=== PATIENT | female | born 1940 | race Caucasian/White ===

== ENCOUNTER 2020-04-20 03:01 | Inpatient (IN) ==
[2020-04-20] MEDS ORDERED: Naloxone 0.4 MG/ML INJ IVP PRN (05:43)
[2020-04-20] MEDS ORDERED: Perflutren Lipid Microsphere 1.3 ML in 0.9 % Sodium Chloride 8.7 ML IVP PRN ×2 (05:46→12:30)
[2020-04-20] MEDS ORDERED: Acetaminophen 325 MG TABLET PO PRN (06:00)
[2020-04-20] MEDS ORDERED: *HR* Promethazine 25 MG/ML VIAL IVP PRN (06:00)
[2020-04-20 06:08] LABS: Bilirubin,Urine Negative (Negative); Blood,Urine Negative (Negative); Clarity,Urine Clear (Clear); Color,Urine Colorless (Yellow); Glucose,Urine (UA) Normal (Normal); Ketones,Urine Negative (Negative); Leukocyte Esterase,Urine Negative (Negative); Nitrite,Urine Negative (Negative); PH,Urine 7.5 pH Units (5.0-8.0); Protein,Urine Negative (Neg-Trace); Urobilinogen,Urine Normal (Normal)
[2020-04-20 06:30] LABS: Basophils % 0.1 %; Mean Platelet Volume 9.7 fL (9.4-12.4)
[2020-04-20] MEDS ORDERED: Isovue-370 500 ML BOTTLE IVP ONE (06:30)
[2020-04-20 06:32] LABS: Eosinophils # 0.1 K/mcL (0.0-0.6); Eosinophils % 0.8 %; Hematocrit 34.3 % (35.3-44.9); Hemoglobin 9.7 g/dL (11.5-15.4); Immature Granulocytes % 0.4 % (0-4); Lymphocytes % 6.8 %; Mean Corpuscular HGB Conc 28.3 g/dL (31.6-35.5); Mean Corpuscular Hemoglobin 25.1 pg (28.0-33.3); Mean Corpuscular Volume 88.6 fL (83.0-100.0); Monocytes # 0.8 K/mcL (0.0-1.3); Monocytes % 5.6 %; Neutrophils # 12.6 K/mcL (1.6-8.9); Nucleated Red Blood Cells 0.1 /100 WBC (0); Platelet Count 412 K/mcL (140-400); Red Blood Count 3.87 M/mcL (3.82-4.97); Red Cell Distribution Width 22.4 % (11.5-14.5); Segmented Neutrophils % 86.3 %; White Blood Count 14.6 K/mcL (4.3-11.1)
[2020-04-20 06:41] LABS: INR 1.1; Prothrombin Time 12.7 Seconds (9.4-12.1)
[2020-04-20 06:44] LABS: Adenovirus Not Detected (Not Detect); Bordetella Pertussis Not Detected (Not Detect); Chlamydophila pneumoniae Not Detected (Not Detect); Coronavirus 229E Not Detected (Not Detect); Coronavirus HKU1 Not Detected (Not Detect); Coronavirus NL63 Not Detected (Not Detect); Coronavirus OC43 Not Detected (Not Detect); Human Metapneumovirus Not Detected (Not Detect); Human Rhinovirus/Enterovirus DETECTED (Not Detect); Influenza A Subtype 2009 H1 Not Detected (Not Detect); Influenza B Not Detected (Not Detect); Mycoplasma pneumoniae Not Detected (Not Detect); Parainfluenza Virus 1 Not Detected (Not Detect); Parainfluenza Virus 2 Not Detected (Not Detect); Parainfluenza Virus 3 Not Detected (Not Detect); Parainfluenza Virus 4 Not Detected (Not Detect); Respiratory Syncytial Virus Not Detected (Not Detect)
[2020-04-20 06:58] LABS: Anisocytosis 1+ (Not Present); Hypochromasia Present (Not Present); Platelet Estimate Normal (Normal)
[2020-04-20] MEDS ORDERED: Furosemide 40 MG/4 ML VIAL IVP ONE (07:09)
[2020-04-20 07:17] LABS: Alanine Aminotransferase 22 Units/L (7-52); Albumin 3.3 g/dL (3.5-5.7); Albumin/Globulin Ratio 1.1 (1.1-2.2); Alkaline Phosphatase 81 Units/L (34-104); Aspartate Amino Transferase 19 Units/L (13-39); BUN/Creatinine Ratio 26 (6-26); Bilirubin,Total 0.6 mg/dL (0.3-1.0); Blood Urea Nitrogen 27 mg/dL (8-23); Calcium 8.9 mg/dL (8.6-10.3); Carbon Dioxide 44 mEq/L (23-29); Chloride 91 mEq/L (98-107); Chol/HDL Ratio 2.3 (0-4.9); Cholesterol 97 mg/dL (< 200); Ferritin 35 ng/mL (10-120); Globulin 3.1 g/dL (2.4-3.5); Glucose 116 mg/dL (70-105); HDL Cholesterol 43 mg/dL (40-59); LDL Cholesterol,Calculated 42 mg/dL (< 100); Magnesium 2.3 mg/dL (1.6-2.6); Osmolality,Calculated 290 (280-300); Phosphorous 3.6 mg/dL (2.7-4.5); Potassium 3.9 mEq/L (3.5-5.1); Sodium 137 mEq/L (136-145); Total Protein 6.4 g/dL (6.4-8.9); Triglycerides 61 mg/dL (< 150); eGFR For African Americans > 60 (> 60); eGFR For Non-African Americans 51 (> 60)
[2020-04-20 07:19] LABS: Folate 7.7 ng/mL (3.0-16.0)
[2020-04-20 08:12] LABS: ABG Base Excess 16 mEq/L (-2 to 3); ABG HCO3 46 mEq/L (21-27); ABG Oxygen Saturation 94 % (95-98); ABG PCO2 84 mmHg (35-45); ABG PH 7.35 pH Units (7.32-7.45); ABG PO2 79 mmHg (85-104); ABG TCO2 48 mEq/L (20-26); Blood Gas Pressure Support 16 cm H2O
[2020-04-20] MEDS: Azithromycin 500 MG in 0.9 % Sodium Chloride 250 ML IVPB SCH (08:47)
[2020-04-20] MEDS: Furosemide 40 MG/4 ML VIAL IVP SCH ×2 (08:56→23:01)
[2020-04-20] MEDS: methylPREDNISolone 125 MG/2 ML VIAL IVP SCH ×2 (08:56→16:17)
[2020-04-20] MEDS: *HR* Heparin 5,000 UNIT/ML VIAL SQ SCH ×3 (08:57→21:58)
[2020-04-20] MEDS ORDERED: Haloperidol Lactate 5 MG/ML VIAL IVP ONE (09:01)
[2020-04-20] MEDS ORDERED: *HR* Dextrose 50 % in Water (Vial) 50 ML VIAL IVP ONE (11:15)
[2020-04-20] MEDS: Ipratropium/Albuterol Neb 3 ML IH SCH ×4 (12:01→23:26)
[2020-04-20 12:07] LABS: ABG Base Excess 18 mEq/L (-2 to 3); ABG HCO3 46 mEq/L (21-27); ABG Oxygen Saturation 83 % (95-98); ABG PCO2 78 mmHg (35-45); ABG PH 7.38 pH Units (7.32-7.45); ABG PO2 51 mmHg (85-104); ABG TCO2 49 mEq/L (20-26)
[2020-04-20] MEDS: Aspirin 81 MG TAB.CHEW PO SCH (13:00)
[2020-04-20 13:18] LABS: VBG HCO3 40 mEq/L (21-27); VBG PCO2 49 mmHg (41-51); VBG PH 7.52 pH Units (7.32-7.42); VBG PO2 208 mmHg (25-50)
[2020-04-20] MEDS: Dexmedetomidine HCl 400 MCG/100 ML MLS IVC SCH ×2 (13:52→15:04)
[2020-04-20] MEDS: cefTRIAXone 2,000 MG in Water for inj. (sterile) 20 ML IVP SCH (14:00)
[2020-04-20 18:06] LABS: VBG HCO3 44 mEq/L (21-27); VBG PCO2 81 mmHg (41-51); VBG PH 7.34 pH Units (7.32-7.42); VBG PO2 136 mmHg (25-50)
[2020-04-20 22:10] LABS: ABG Base Excess 20 mEq/L (-2 to 3); ABG HCO3 49 mEq/L (21-27); ABG Oxygen Saturation 88 % (95-98); ABG PCO2 79 mmHg (35-45); ABG PO2 60 mmHg (85-104); ABG TCO2 > 50 mEq/L (20-26); Blood Gas Modality BiLevel; Blood Gas Pressure Support 8 cm H2O
[2020-04-20 22:54] LABS: VBG HCO3 44 mEq/L (21-27); VBG PCO2 73 mmHg (41-51); VBG PH 7.38 pH Units (7.32-7.42); VBG PO2 58 mmHg (25-50)
[2020-04-21] MEDS: methylPREDNISolone 125 MG/2 ML VIAL IVP SCH ×4 (00:47→22:30)
[2020-04-21 03:26] LABS: Immature Granulocytes % 0.3 % (0-4)
[2020-04-21 03:27] LABS: Eosinophils % 0.2 %; Hematocrit 28.4 % (35.3-44.9); Hemoglobin 8.1 g/dL (11.5-15.4); Lymphocytes # 0.3 K/mcL (0.6-4.6); Lymphocytes % 5.7 %; Mean Corpuscular HGB Conc 28.5 g/dL (31.6-35.5); Mean Corpuscular Hemoglobin 24.8 pg (28.0-33.3); Mean Corpuscular Volume 87.1 fL (83.0-100.0); Mean Platelet Volume 9.6 fL (9.4-12.4); Monocytes # 0.1 K/mcL (0.0-1.3); Monocytes % 1.9 %; Neutrophils # 5.3 K/mcL (1.6-8.9); Platelet Count 304 K/mcL (140-400); Red Blood Count 3.26 M/mcL (3.82-4.97); Segmented Neutrophils % 91.9 %; White Blood Count 5.8 K/mcL (4.3-11.1)
[2020-04-21 03:27] LABS: VBG HCO3 43 mEq/L (21-27); VBG PCO2 65 mmHg (41-51); VBG PH 7.43 pH Units (7.32-7.42); VBG PO2 218 mmHg (25-50)
[2020-04-21 03:39] LABS: INR 1.2; Prothrombin Time 13.2 Seconds (9.4-12.1)
[2020-04-21 03:41] LABS: % Iron Saturation 3 % (15-50); Iron 10 mcg/dL (50-170); Transferrin 279 mg/dL (203-362)
[2020-04-21] MEDS: Ipratropium/Albuterol Neb 3 ML IH SCH ×6 (03:43→23:42)
[2020-04-21 03:50] LABS: BUN/Creatinine Ratio 25 (6-26); Blood Urea Nitrogen 21 mg/dL (8-23); Calcium 8.3 mg/dL (8.6-10.3); Carbon Dioxide 43 mEq/L (23-29); Chloride 93 mEq/L (98-107); Glucose 133 mg/dL (70-105); Osmolality,Calculated 293 (280-300); Potassium 4.1 mEq/L (3.5-5.1); Sodium 139 mEq/L (136-145); eGFR For African Americans > 60 (> 60); eGFR For Non-African Americans > 60 (> 60)
[2020-04-21] MEDS: *HR* Heparin 5,000 UNIT/ML VIAL SQ SCH ×3 (04:41→22:06)
[2020-04-21 04:42] LABS: Anisocytosis 1+ (Not Present); Hypochromasia Present (Not Present); Microcytosis Present (Not Present); Platelet Estimate Normal (Normal)
[2020-04-21 06:23] LABS: Magnesium 2.2 mg/dL (1.6-2.6)
[2020-04-21 06:24] LABS: Troponin I 0.03 ng/mL (< 0.04)
[2020-04-21] MEDS: Aspirin 81 MG TAB.CHEW PO SCH (08:57)
[2020-04-21] MEDS: Azithromycin 500 MG in 0.9 % Sodium Chloride 250 ML IVPB SCH (08:58)
[2020-04-21] MEDS ORDERED: Furosemide 40 MG/4 ML VIAL IVP ONE (10:06)
[2020-04-21] MEDS: Iron Sucrose Complex 400 MG in 0.9 % Sodium Chloride 250 ML IVPB SCH (11:27)
[2020-04-21] MEDS: polyethylene glycoL 3350 17 GM POWD.PACK PO SCH ×2 (13:28→22:06)
[2020-04-21] MEDS: cefTRIAXone 2,000 MG in Water for inj. (sterile) 20 ML IVP SCH (13:28)
[2020-04-21] MEDS: *HR* OxyCODONE Immed Rel 5 MG TABLET PO PRN ×3 (13:29→22:09)
[2020-04-21 16:12] LABS: VBG HCO3 41 mEq/L (21-27); VBG PCO2 61 mmHg (41-51); VBG PH 7.44 pH Units (7.32-7.42); VBG PO2 222 mmHg (25-50)
[2020-04-21] MEDS ORDERED: Furosemide 80 MG in 0.9 % Sodium Chloride 50 ML IVPB ONE (18:16)
[2020-04-21] MEDS ORDERED: Furosemide 480 MG in 0.9 % Sodium Chloride 192 ML IVC SCH (20:00)
[2020-04-21 20:14] LABS: VBG HCO3 40 mEq/L (21-27); VBG PCO2 61 mmHg (41-51); VBG PH 7.42 pH Units (7.32-7.42); VBG PO2 209 mmHg (25-50)
[2020-04-21 20:16] LABS: ABG Base Excess 13 mEq/L (-2 to 3); ABG HCO3 40 mEq/L (21-27); ABG Oxygen Saturation 88 % (95-98); ABG PCO2 68 mmHg (35-45); ABG PH 7.38 pH Units (7.32-7.45); ABG PO2 59 mmHg (85-104); ABG TCO2 42 mEq/L (20-26)
[2020-04-21 20:37] LABS: BUN/Creatinine Ratio 26 (6-26); Blood Urea Nitrogen 25 mg/dL (8-23); Calcium 8.9 mg/dL (8.6-10.3); Carbon Dioxide 40 mEq/L (23-29); Chloride 91 mEq/L (98-107); Glucose 135 mg/dL (70-105); Osmolality,Calculated 290 (280-300); Potassium 3.9 mEq/L (3.5-5.1); Sodium 137 mEq/L (136-145); eGFR For African Americans > 60 (> 60); eGFR For Non-African Americans 56 (> 60)
[2020-04-22 00:51] LABS: VBG HCO3 38 mEq/L (21-27); VBG PCO2 35 mmHg (41-51); VBG PH 7.63 pH Units (7.32-7.42); VBG PO2 210 mmHg (25-50)
[2020-04-22 01:22] LABS: BUN/Creatinine Ratio 26 (6-26); Blood Urea Nitrogen 25 mg/dL (8-23); Calcium 8.4 mg/dL (8.6-10.3); Carbon Dioxide 32 mEq/L (23-29); Chloride 92 mEq/L (98-107); Glucose 153 mg/dL (70-105); Osmolality,Calculated 289 (280-300); Potassium 4.4 mEq/L (3.5-5.1); Sodium 136 mEq/L (136-145); eGFR For African Americans > 60 (> 60); eGFR For Non-African Americans 56 (> 60)
[2020-04-22] MEDS: Ipratropium/Albuterol Neb 3 ML IH SCH ×6 (03:31→23:36)
[2020-04-22] MEDS: *HR* Heparin 5,000 UNIT/ML VIAL SQ SCH ×3 (06:15→21:21)
[2020-04-22 08:02] LABS: Hematocrit 34.1 % (35.3-44.9); Hemoglobin 9.5 g/dL (11.5-15.4); Mean Corpuscular HGB Conc 27.9 g/dL (31.6-35.5); Mean Corpuscular Hemoglobin 24.4 pg (28.0-33.3); Mean Corpuscular Volume 87.4 fL (83.0-100.0); Mean Platelet Volume 9.6 fL (9.4-12.4); Platelet Count 364 K/mcL (140-400); Red Cell Distribution Width 22.5 % (11.5-14.5); White Blood Count 13.5 K/mcL (4.3-11.1)
[2020-04-22 08:02] LABS: VBG HCO3 41 mEq/L (21-27); VBG PCO2 69 mmHg (41-51); VBG PH 7.38 pH Units (7.32-7.42); VBG PO2 77 mmHg (25-50)
[2020-04-22 08:04] LABS: INR 1.1; Prothrombin Time 12.2 Seconds (9.4-12.1)
[2020-04-22 08:37] LABS: ABG Base Excess 13 mEq/L (-2 to 3); ABG HCO3 40 mEq/L (21-27); ABG Oxygen Saturation 89 % (95-98); ABG PCO2 60 mmHg (35-45); ABG PH 7.43 pH Units (7.32-7.45); ABG PO2 57 mmHg (85-104); ABG TCO2 42 mEq/L (20-26)
[2020-04-22] MEDS: *HR* OxyCODONE Immed Rel 5 MG TABLET PO PRN ×2 (08:59→21:22)
[2020-04-22] MEDS: polyethylene glycoL 3350 17 GM POWD.PACK PO SCH ×2 (09:01→21:21)
[2020-04-22] MEDS: Aspirin 81 MG TAB.CHEW PO SCH (09:01)
[2020-04-22] MEDS: Azithromycin 500 MG in 0.9 % Sodium Chloride 250 ML IVPB SCH (09:02)
[2020-04-22] MEDS: methylPREDNISolone 125 MG/2 ML VIAL IVP SCH ×3 (09:02→23:23)
[2020-04-22] MEDS: Dexmedetomidine HCl 400 MCG/100 ML MLS IVC SCH (09:06)
[2020-04-22] MEDS: Furosemide 40 MG/4 ML VIAL IVP SCH ×2 (09:07→21:20)
[2020-04-22] MEDS: Iron Sucrose Complex 400 MG in 0.9 % Sodium Chloride 250 ML IVPB SCH (09:14)
[2020-04-22] MEDS: cefTRIAXone 2,000 MG in Water for inj. (sterile) 20 ML IVP SCH (12:25)
[2020-04-22] MEDS: Budesonide/Formoterol 160/4.5 1 PUFF INH IH SCH (19:59)
[2020-04-22 23:07] LABS: VBG HCO3 37 mEq/L (21-27); VBG PCO2 57 mmHg (41-51); VBG PH 7.42 pH Units (7.32-7.42); VBG PO2 210 mmHg (25-50)
[2020-04-22] MEDS: Melatonin 3 MG TABLET PO PRN (23:24)
[2020-04-23] MEDS: Ipratropium/Albuterol Neb 3 ML IH SCH ×5 (03:42→20:29)
[2020-04-23] MEDS: *HR* Heparin 5,000 UNIT/ML VIAL SQ SCH ×3 (06:05→20:14)
[2020-04-23] MEDS: Budesonide/Formoterol 160/4.5 1 PUFF INH IH SCH ×2 (07:31→20:30)
[2020-04-23] MEDS: polyethylene glycoL 3350 17 GM POWD.PACK PO SCH ×2 (08:02→20:15)
[2020-04-23] MEDS: Aspirin 81 MG TAB.CHEW PO SCH (08:02)
[2020-04-23] MEDS: methylPREDNISolone 125 MG/2 ML VIAL IVP SCH (08:03)
[2020-04-23] MEDS: Furosemide 40 MG/4 ML VIAL IVP SCH ×2 (08:03→20:13)
[2020-04-23] MEDS: Azithromycin 500 MG in 0.9 % Sodium Chloride 250 ML IVPB SCH (08:10)
[2020-04-23 09:38] LABS: VBG HCO3 35 mEq/L (21-27); VBG PCO2 51 mmHg (41-51); VBG PH 7.44 pH Units (7.32-7.42); VBG PO2 211 mmHg (25-50)
[2020-04-23 10:01] LABS: Calcium 8.6 mg/dL (8.6-10.3); Potassium 3.4 mEq/L (3.5-5.1)
[2020-04-23] MEDS: Iron Sucrose Complex 400 MG in 0.9 % Sodium Chloride 250 ML IVPB SCH (10:02)
[2020-04-23 10:17] LABS: Hematocrit 32.5 % (35.3-44.9); Hemoglobin 9.3 g/dL (11.5-15.4); Mean Corpuscular HGB Conc 28.6 g/dL (31.6-35.5); Mean Corpuscular Hemoglobin 24.5 pg (28.0-33.3); Mean Corpuscular Volume 85.8 fL (83.0-100.0); Platelet Count 344 K/mcL (140-400); Red Blood Count 3.79 M/mcL (3.82-4.97); Red Cell Distribution Width 22.4 % (11.5-14.5); White Blood Count 13.8 K/mcL (4.3-11.1)
[2020-04-23] MEDS ORDERED: Potassium Chloride Elixir 20 MEQ/15 ML UDC PO ONE (11:35)
[2020-04-23 17:59] LABS: VBG HCO3 32 mEq/L (21-27); VBG PCO2 47 mmHg (41-51); VBG PH 7.43 pH Units (7.32-7.42); VBG PO2 217 mmHg (25-50)
[2020-04-24] MEDS: Ipratropium/Albuterol Neb 3 ML IH SCH ×6 (00:29→20:45)
[2020-04-24 05:18] LABS: VBG HCO3 37 mEq/L (21-27); VBG PCO2 61 mmHg (41-51); VBG PH 7.39 pH Units (7.32-7.42); VBG PO2 84 mmHg (25-50)
[2020-04-24] MEDS: *HR* Heparin 5,000 UNIT/ML VIAL SQ SCH ×3 (05:21→20:16)
[2020-04-24 05:23] LABS: Hematocrit 32.2 % (35.3-44.9); Hemoglobin 9.4 g/dL (11.5-15.4); Mean Corpuscular HGB Conc 29.2 g/dL (31.6-35.5); Mean Corpuscular Hemoglobin 25.1 pg (28.0-33.3); Mean Corpuscular Volume 86.1 fL (83.0-100.0); Mean Platelet Volume 9.9 fL (9.4-12.4); Platelet Count 327 K/mcL (140-400); Red Blood Count 3.74 M/mcL (3.82-4.97); Red Cell Distribution Width 22.7 % (11.5-14.5); White Blood Count 16.4 K/mcL (4.3-11.1)
[2020-04-24 05:39] LABS: Calcium 9.1 mg/dL (8.6-10.3); Potassium 3.4 mEq/L (3.5-5.1)
[2020-04-24] MEDS: Budesonide/Formoterol 160/4.5 1 PUFF INH IH SCH ×2 (07:37→20:45)
[2020-04-24] MEDS: Aspirin 81 MG TAB.CHEW PO SCH (07:50)
[2020-04-24] MEDS: predniSONE 20 MG TABLET PO SCH (07:50)
[2020-04-24] MEDS: Azithromycin 250 MG TABLET PO SCH (07:50)
[2020-04-24] MEDS: Furosemide 40 MG/4 ML VIAL IVP SCH ×2 (07:50→20:16)
[2020-04-24] MEDS ORDERED: Potassium Chloride Elixir 20 MEQ/15 ML UDC PO ONE (11:45)
[2020-04-24] MEDS: polyethylene glycoL 3350 17 GM POWD.PACK PO SCH ×2 (13:43→20:13)
[2020-04-24] MEDS: Melatonin 3 MG TABLET PO PRN (20:14)
[2020-04-24] MEDS: *HR* OxyCODONE Immed Rel 5 MG TABLET PO PRN (20:15)
[2020-04-25] MEDS: Ipratropium/Albuterol Neb 3 ML IH SCH ×7 (00:44→23:40)
[2020-04-25 01:44] LABS: Eosinophils % 0.2 %; Hematocrit 31.8 % (35.3-44.9); Hemoglobin 9.1 g/dL (11.5-15.4); Mean Corpuscular HGB Conc 28.6 g/dL (31.6-35.5); Nucleated Red Blood Cells 0.6 /100 WBC (0)
[2020-04-25 01:44] LABS: VBG HCO3 36 mEq/L (21-27); VBG PCO2 51 mmHg (41-51); VBG PH 7.45 pH Units (7.32-7.42); VBG PO2 98 mmHg (25-50)
[2020-04-25 01:45] LABS: Basophils % 0.2 %; Lymphocytes # 1.5 K/mcL (0.6-4.6); Lymphocytes % 11.3 %; Mean Corpuscular Hemoglobin 24.5 pg (28.0-33.3); Mean Corpuscular Volume 85.5 fL (83.0-100.0); Mean Platelet Volume 9.9 fL (9.4-12.4); Monocytes # 0.8 K/mcL (0.0-1.3); Platelet Count 306 K/mcL (140-400); Red Blood Count 3.72 M/mcL (3.82-4.97); Segmented Neutrophils % 81.3 %; White Blood Count 13.5 K/mcL (4.3-11.1)
[2020-04-25 02:15] LABS: Anisocytosis 1+ (Not Present)
[2020-04-25 02:16] LABS: Hypochromasia Present (Not Present); Platelet Estimate Normal (Normal)
[2020-04-25 02:23] LABS: Calcium 8.7 mg/dL (8.6-10.3); Potassium 4.1 mEq/L (3.5-5.1)
[2020-04-25] MEDS: *HR* Heparin 5,000 UNIT/ML VIAL SQ SCH ×3 (05:12→21:22)
[2020-04-25] MEDS: Budesonide/Formoterol 160/4.5 1 PUFF INH IH SCH ×2 (07:25→20:22)
[2020-04-25] MEDS: Iron Sucrose Complex 400 MG in 0.9 % Sodium Chloride 250 ML IVPB SCH (08:23)
[2020-04-25] MEDS: predniSONE 20 MG TABLET PO SCH (08:33)
[2020-04-25] MEDS: Azithromycin 250 MG TABLET PO SCH (08:33)
[2020-04-25] MEDS: polyethylene glycoL 3350 17 GM POWD.PACK PO SCH ×2 (08:33→21:23)
[2020-04-25] MEDS: Aspirin 81 MG TAB.CHEW PO SCH (08:33)
[2020-04-25] MEDS: Furosemide 40 MG/4 ML VIAL IVP SCH (08:33)
[2020-04-25] MEDS: *HR* OxyCODONE Immed Rel 5 MG TABLET PO PRN ×2 (08:44→15:07)
[2020-04-25] MEDS ORDERED: D5% in Water 1,000 ML IVC PRN (10:20)
[2020-04-25] MEDS ORDERED: Dextrose Gel 15 GM/37.5 ML TUBE PO PRN ×2 (10:20)
[2020-04-25] MEDS ORDERED: *HR* Dextrose 50 % in Water (Vial) 50 ML VIAL IVP PRN (10:20)
[2020-04-25 11:17] LABS: Estimated Average Glucose 128 mg/dl
[2020-04-25] MEDS: Insulin LISPRO 300 UNITS/3 ML VIAL SQ SCH ×3 (11:29→17:41)
[2020-04-25] MEDS: Furosemide 40 MG TABLET PO SCH (17:41)
[2020-04-26] MEDS: Ipratropium/Albuterol Neb 3 ML IH SCH ×3 (03:21→11:11)
[2020-04-26] MEDS: *HR* Heparin 5,000 UNIT/ML VIAL SQ SCH ×2 (06:09→14:00)
[2020-04-26] MEDS ORDERED: Haloperidol Lactate 5 MG/ML VIAL IVP ONE ×2 (06:11→09:46)
[2020-04-26] MEDS: Budesonide/Formoterol 160/4.5 1 PUFF INH IH SCH (07:48)
[2020-04-26] MEDS: Insulin LISPRO 300 UNITS/3 ML VIAL SQ SCH ×2 (08:20→12:28)
[2020-04-26] MEDS: predniSONE 20 MG TABLET PO SCH (08:39)
[2020-04-26] MEDS: Furosemide 40 MG TABLET PO SCH (08:39)
[2020-04-26] MEDS: Aspirin 81 MG TAB.CHEW PO SCH (08:39)
[2020-04-26] MEDS: polyethylene glycoL 3350 17 GM POWD.PACK PO SCH (08:39)
[2020-04-26] MEDS: *HR* OxyCODONE Immed Rel 5 MG TABLET PO PRN (08:41)
[2020-04-26] MEDS ORDERED: *HR* OxyCODONE Immed Rel 5 MG TABLET PO PRN (09:50)
[2020-04-26 10:15] LABS: Mean Platelet Volume 9.8 fL (9.4-12.4)
[2020-04-26 10:16] LABS: Hematocrit 32.3 % (35.3-44.9); Hemoglobin 9.4 g/dL (11.5-15.4); Mean Corpuscular HGB Conc 29.1 g/dL (31.6-35.5); Mean Corpuscular Hemoglobin 25.5 pg (28.0-33.3); Mean Corpuscular Volume 87.5 fL (83.0-100.0); Platelet Count 288 K/mcL (140-400); Red Blood Count 3.69 M/mcL (3.82-4.97); Red Cell Distribution Width 23.9 % (11.5-14.5); White Blood Count 17.9 K/mcL (4.3-11.1)
[2020-04-26 10:25] LABS: VBG HCO3 36 mEq/L (21-27); VBG PCO2 45 mmHg (41-51); VBG PH 7.52 pH Units (7.32-7.42); VBG PO2 143 mmHg (25-50)
[2020-04-26 10:35] LABS: BUN/Creatinine Ratio 34 (6-26); Blood Urea Nitrogen 31 mg/dL (8-23); Calcium 9.2 mg/dL (8.6-10.3); Carbon Dioxide 36 mEq/L (23-29); Chloride 96 mEq/L (98-107); Glucose 99 mg/dL (70-105); Osmolality,Calculated 289 (280-300); Potassium 4.1 mEq/L (3.5-5.1); Sodium 136 mEq/L (136-145); eGFR For African Americans > 60 (> 60); eGFR For Non-African Americans > 60 (> 60)
== END 2020-04-26 15:43 | disposition home or self-care (01) | DRG 280 ==
LOC: CDU → 2NNU 06:50 → 2ANU 04-24 14:42
PROVIDERS: ADMIT Student in an Organized Health Care Education/Training Program; ATTEND Student in an Organized Health Care Education/Training Program

== ENCOUNTER 2020-05-17 12:22 | Observation (INO) ==
[2020-05-17 13:56] LABS: Basophils % 0.3 %; Eosinophils # 0.1 K/mcL (0.0-0.6); Eosinophils % 0.8 %; Hematocrit 29.9 % (35.3-44.9); Hemoglobin 8.8 g/dL (11.5-15.4); Immature Granulocytes % 0.6 % (0-4); Lymphocytes # 1.7 K/mcL (0.6-4.6); Lymphocytes % 25.4 %; Mean Corpuscular HGB Conc 29.4 g/dL (31.6-35.5); Mean Corpuscular Hemoglobin 26.5 pg (28.0-33.3); Mean Corpuscular Volume 90.1 fL (83.0-100.0); Mean Platelet Volume 9.4 fL (9.4-12.4); Monocytes # 0.6 K/mcL (0.0-1.3); Monocytes % 8.9 %; Neutrophils # 4.3 K/mcL (1.6-8.9); Platelet Count 293 K/mcL (140-400); Red Blood Count 3.32 M/mcL (3.82-4.97); Red Cell Distribution Width 25.4 % (11.5-14.5); White Blood Count 6.7 K/mcL (4.3-11.1)
[2020-05-17 14:25] LABS: BUN/Creatinine Ratio 15 (6-26); Blood Urea Nitrogen 11 mg/dL (8-23); Calcium 8.5 mg/dL (8.6-10.3); Carbon Dioxide 35 mEq/L (23-29); Chloride 94 mEq/L (98-107); Glucose 86 mg/dL (70-105); Osmolality,Calculated 279 (280-300); Potassium 4.2 mEq/L (3.5-5.1); Sodium 135 mEq/L (136-145); Troponin I 0.03 ng/mL (< 0.04); eGFR For African Americans > 60 (> 60); eGFR For Non-African Americans > 60 (> 60)
[2020-05-17 14:29] LABS: Anisocytosis 2+ (Not Present); Platelet Estimate Normal (Normal)
[2020-05-17 14:49] LABS: Adenovirus Not Detected (Not Detect); Bordetella Pertussis Not Detected (Not Detect); Chlamydophila pneumoniae Not Detected (Not Detect); Coronavirus 229E Not Detected (Not Detect); Coronavirus HKU1 Not Detected (Not Detect); Coronavirus NL63 Not Detected (Not Detect); Coronavirus OC43 Not Detected (Not Detect); Human Metapneumovirus Not Detected (Not Detect); Human Rhinovirus/Enterovirus DETECTED (Not Detect); Influenza A Subtype 2009 H1 Not Detected (Not Detect); Influenza B Not Detected (Not Detect); Mycoplasma pneumoniae Not Detected (Not Detect); Parainfluenza Virus 1 Not Detected (Not Detect); Parainfluenza Virus 2 Not Detected (Not Detect); Parainfluenza Virus 3 Not Detected (Not Detect); Parainfluenza Virus 4 Not Detected (Not Detect); Respiratory Syncytial Virus Not Detected (Not Detect); SARS-CoV-2 Not Detected (Not Detect)
[2020-05-17] MEDS ORDERED: Furosemide 40 MG/4 ML VIAL IVP ONE (14:51)
[2020-05-17] MEDS ORDERED: Naloxone 0.4 MG/ML INJ IVP PRN (16:32)
[2020-05-17] MEDS ORDERED: Ondansetron 4 MG/2 ML VIAL IVP PRN (16:32)
[2020-05-17] MEDS ORDERED: Ipratropium/Albuterol Neb 3 ML IH PRN (17:58)
[2020-05-17] MEDS: *HR* Heparin 5,000 UNIT/ML VIAL SQ SCH (21:15)
[2020-05-18 03:26] LABS: Basophils % 0.3 %; Eosinophils # 0.1 K/mcL (0.0-0.6); Eosinophils % 1.1 %; Immature Granulocytes % 0.6 % (0-4); Lymphocytes % 27.1 %; Mean Corpuscular Hemoglobin 27.3 pg (28.0-33.3); Mean Corpuscular Volume 90.9 fL (83.0-100.0); Mean Platelet Volume 9.2 fL (9.4-12.4); Monocytes # 0.6 K/mcL (0.0-1.3); Monocytes % 8.3 %; Neutrophils # 4.5 K/mcL (1.6-8.9); Platelet Count 271 K/mcL (140-400); Red Cell Distribution Width 25.5 % (11.5-14.5); Segmented Neutrophils % 62.6 %; White Blood Count 7.2 K/mcL (4.3-11.1)
[2020-05-18 03:41] LABS: BUN/Creatinine Ratio 18 (6-26); Blood Urea Nitrogen 15 mg/dL (8-23); Calcium 8.4 mg/dL (8.6-10.3); Carbon Dioxide 33 mEq/L (23-29); Chloride 95 mEq/L (98-107); Glucose 98 mg/dL (70-105); Osmolality,Calculated 281 (280-300); Potassium 3.8 mEq/L (3.5-5.1); Sodium 135 mEq/L (136-145); eGFR For African Americans > 60 (> 60); eGFR For Non-African Americans > 60 (> 60)
[2020-05-18 03:55] LABS: Thyroid Stimulating Hormone 0.698 mcIU/mL (0.340-5.600)
[2020-05-18 04:05] LABS: Folate 10.3 ng/mL (3.0-16.0)
[2020-05-18 04:27] LABS: Anisocytosis 1+ (Not Present); Hypochromasia Present (Not Present); Platelet Estimate Normal (Normal)
[2020-05-18] MEDS: Ibuprofen 400 MG TABLET PO PRN ×2 (05:50→20:41)
[2020-05-18] MEDS: *HR* Heparin 5,000 UNIT/ML VIAL SQ SCH ×3 (05:50→20:42)
[2020-05-18] MEDS ORDERED: Cyanocobalamin (B-12) 1,000 MCG/ML VIAL SQ ONE (07:21)
[2020-05-18] MEDS ORDERED: Furosemide 40 MG/4 ML VIAL IVP SCH (09:00)
[2020-05-18 10:04] LABS: Estimated Average Glucose 114 mg/dl
[2020-05-18] MEDS: lisinopriL 5 MG TABLET PO SCH ×2 (11:09→12:02)
[2020-05-18] MEDS: Aspirin 81 MG TAB.CHEW PO SCH (11:46)
[2020-05-18] MEDS: Silvasorb 44.4 ML TUBE TP SCH (13:00)
[2020-05-18 21:34] LABS: Alanine Aminotransferase 14 Units/L (7-52); Aspartate Amino Transferase 16 Units/L (13-39)
[2020-05-19 03:23] LABS: Eosinophils % 0.8 %; Hemoglobin 8.5 g/dL (11.5-15.4)
[2020-05-19 03:24] LABS: Basophils % 0.3 %; Eosinophils # 0.1 K/mcL (0.0-0.6); Hematocrit 28.6 % (35.3-44.9); Immature Granulocytes % 0.7 % (0-4); Lymphocytes % 27.8 %; Mean Corpuscular HGB Conc 29.7 g/dL (31.6-35.5); Mean Corpuscular Hemoglobin 27.1 pg (28.0-33.3); Mean Corpuscular Volume 91.1 fL (83.0-100.0); Mean Platelet Volume 9.6 fL (9.4-12.4); Monocytes # 0.6 K/mcL (0.0-1.3); Monocytes % 8.1 %; Platelet Count 277 K/mcL (140-400); Red Blood Count 3.14 M/mcL (3.82-4.97); Red Cell Distribution Width 25.3 % (11.5-14.5); Segmented Neutrophils % 62.3 %; White Blood Count 7.3 K/mcL (4.3-11.1)
[2020-05-19 03:25] LABS: Neutrophils # 4.6 K/mcL (1.6-8.9)
[2020-05-19 03:44] LABS: BUN/Creatinine Ratio 24 (6-26); Blood Urea Nitrogen 20 mg/dL (8-23); Calcium 8.7 mg/dL (8.6-10.3); Carbon Dioxide 33 mEq/L (23-29); Chloride 95 mEq/L (98-107); Glucose 102 mg/dL (70-105); Osmolality,Calculated 283 (280-300); Potassium 3.7 mEq/L (3.5-5.1); Sodium 135 mEq/L (136-145); eGFR For African Americans > 60 (> 60); eGFR For Non-African Americans > 60 (> 60)
[2020-05-19 03:53] LABS: Anisocytosis 2+ (Not Present); Hypochromasia Present (Not Present); Microcytosis Present (Not Present); Platelet Estimate Normal (Normal)
[2020-05-19] MEDS: *HR* Heparin 5,000 UNIT/ML VIAL SQ SCH (05:51)
[2020-05-19] MEDS ORDERED: Bumetanide 1 MG TABLET PO SCH (09:00)
[2020-05-19] MEDS ORDERED: Cyanocobalamin (B-12) 1,000 MCG TABLET PO SCH (09:00)
[2020-05-19] MEDS: Aspirin 81 MG TAB.CHEW PO SCH (11:06)
[2020-05-19] MEDS: Silvasorb 44.4 ML TUBE TP SCH (11:07)
[2020-05-19 11:51] VITALS: BP 126/79
== END 2020-05-19 17:37 | disposition home or self-care (01) ==
LOC: 2ANU 12:22 → EMEROOARM 12:22 → SUATTDRO 15:35 → 2ANU 16:12
PROVIDERS: ADMIT Pharmacist; ATTEND Pharmacist

== ENCOUNTER 2020-07-02 23:05 | Inpatient (IN) ==
[2020-07-02] MEDS ORDERED: Isovue-370 500 ML BOTTLE IVP ONE (23:18)
[2020-07-02] MEDS ORDERED: Morphine Sulfate 2 MG/ML SYRINGE IVP ONE (23:25)
[2020-07-03] MEDS ORDERED: 0.9 % Sodium Chloride 1,000 ML IVC ONE (00:05)
[2020-07-03] MEDS ORDERED: Ondansetron 4 MG/2 ML VIAL IVP ONE (00:05)
[2020-07-03] MEDS ORDERED: Pantoprazole 80 MG in 0.9 % Sodium Chloride 50 ML IVPB ONE (00:06)
[2020-07-03 00:11] LABS: Basophils % 0.3 %; Eosinophils % 0.2 %; Hematocrit 35.4 % (35.3-44.9); Hemoglobin 10.8 g/dL (11.5-15.4); Immature Granulocytes % 0.3 % (0-4); Lymphocytes # 1.4 K/mcL (0.6-4.6); Lymphocytes % 11.8 %; Mean Corpuscular HGB Conc 30.5 g/dL (31.6-35.5); Mean Corpuscular Hemoglobin 29.3 pg (28.0-33.3); Mean Corpuscular Volume 95.9 fL (83.0-100.0); Mean Platelet Volume 9.4 fL (9.4-12.4); Monocytes # 0.5 K/mcL (0.0-1.3); Neutrophils # 9.6 K/mcL (1.6-8.9); Platelet Count 310 K/mcL (140-400); Red Blood Count 3.69 M/mcL (3.82-4.97); Segmented Neutrophils % 83.4 %; White Blood Count 11.5 K/mcL (4.3-11.1)
[2020-07-03 00:36] LABS: Alanine Aminotransferase 8 Units/L (7-52); Albumin 3.6 g/dL (3.5-5.7); Albumin/Globulin Ratio 0.9 (1.1-2.2); Alkaline Phosphatase 59 Units/L (34-104); Aspartate Amino Transferase 22 Units/L (13-39); BUN/Creatinine Ratio 13 (6-26); Bilirubin,Total 0.7 mg/dL (0.3-1.0); Blood Urea Nitrogen 10 mg/dL (8-23); Calcium 9.9 mg/dL (8.6-10.3); Carbon Dioxide 33 mEq/L (23-29); Chloride 92 mEq/L (98-107); Glucose 129 mg/dL (70-105); Osmolality,Calculated 277 (280-300); Potassium 4.6 mEq/L (3.5-5.1); Sodium 133 mEq/L (136-145); Total Protein 7.6 g/dL (6.4-8.9); Troponin I 0.04 ng/mL (< 0.04); eGFR For African Americans > 60 (> 60); eGFR For Non-African Americans > 60 (> 60)
[2020-07-03 00:53] LABS: Bilirubin,Urine Moderate (Negative); Blood,Urine Negative (Negative); Clarity,Urine Clear (Clear); Color,Urine Yellow (Yellow); Glucose,Urine (UA) Normal (Normal); Ketones,Urine Trace mg/dL (Negative); Leukocyte Esterase,Urine Small (Negative); Nitrite,Urine Negative (Negative); Protein,Urine 100 mg/dL (Neg-Trace); Urobilinogen,Urine Normal (Normal)
[2020-07-03 01:04] LABS: RBC,Urine 0-3 per hpf (0-3); Squamous Epithelial Cell,Urine Many per hpf (None-Few)
[2020-07-03] MEDS ORDERED: Piperacillin/Tazobactam 3.375 GM in 0.9 % Sodium Chloride Mini Bag 100 ML IVPB ONE (02:41)
[2020-07-03] MEDS ORDERED: Tetracaine/Benzocaine/Butamben 1 SPRAY AEROSOL MM ONE (03:01)
[2020-07-03] MEDS ORDERED: Ondansetron 4 MG/2 ML VIAL IVP PRN ×2 (04:08→08:17)
[2020-07-03] MEDS ORDERED: Naloxone 0.4 MG/ML INJ IVP PRN (04:08)
[2020-07-03] MEDS ORDERED: 0.9 % Sodium Chloride 1,000 ML IVC SCH (04:15)
[2020-07-03] MEDS ORDERED: Ipratropium/Albuterol Neb 3 ML IH PRN (04:30)
[2020-07-03] MEDS ORDERED: *HR* Dextrose 50 % in Water (Vial) 50 ML VIAL IVP PRN (04:34)
[2020-07-03] MEDS ORDERED: D5% in Water 1,000 ML IVC PRN (04:34)
[2020-07-03] MEDS ORDERED: Dextrose Gel 15 GM/37.5 ML TUBE PO PRN ×2 (04:34)
[2020-07-03 06:05] LABS: Basophils % 0.4 %; Eosinophils % 0.1 %; Hematocrit 33.1 % (35.3-44.9); Hemoglobin 9.8 g/dL (11.5-15.4); Immature Granulocytes % 0.2 % (0-4); Lymphocytes # 1.5 K/mcL (0.6-4.6); Lymphocytes % 15.3 %; Mean Corpuscular HGB Conc 29.6 g/dL (31.6-35.5); Mean Corpuscular Hemoglobin 29.6 pg (28.0-33.3); Monocytes # 0.6 K/mcL (0.0-1.3); Monocytes % 6.1 %; Neutrophils # 7.7 K/mcL (1.6-8.9); Platelet Count 264 K/mcL (140-400); Red Blood Count 3.31 M/mcL (3.82-4.97); Red Cell Distribution Width 17.9 % (11.5-14.5); Segmented Neutrophils % 77.9 %; White Blood Count 9.9 K/mcL (4.3-11.1)
[2020-07-03 06:29] LABS: BUN/Creatinine Ratio 13 (6-26); Blood Urea Nitrogen 10 mg/dL (8-23); Calcium 8.9 mg/dL (8.6-10.3); Carbon Dioxide 35 mEq/L (23-29); Chloride 97 mEq/L (98-107); Glucose 121 mg/dL (70-105); Osmolality,Calculated 278 (280-300); Potassium 4.3 mEq/L (3.5-5.1); Sodium 134 mEq/L (136-145); eGFR For African Americans > 60 (> 60); eGFR For Non-African Americans > 60 (> 60)
[2020-07-03] MEDS: Insulin LISPRO 300 UNITS/3 ML VIAL SQ SCH ×3 (06:31→18:28)
[2020-07-03] MEDS ORDERED: *HR* Vasopressin 20 UNIT/ML VIAL ONE (07:21)
[2020-07-03] MEDS ORDERED: Albumin Human 5% 12.5 GM/250 ML IV.SOLN ONE ×2 (07:22→08:58)
[2020-07-03] MEDS: Budesonide/Formoterol 160/4.5 1 PUFF INH IH SCH ×2 (07:23→22:01)
[2020-07-03] MEDS ORDERED: Lidocaine -MPF 2% 2 ML VIAL ONE ×2 (07:23→07:44)
[2020-07-03] MEDS ORDERED: Ondansetron 4 MG/2 ML VIAL ONE (07:23)
[2020-07-03] MEDS ORDERED: *HR* Etomidate 40 MG/20 ML VIAL IVP ONE (07:23)
[2020-07-03] MEDS ORDERED: *HR* Propofol 200 MG/20 ML VIAL IVP ONE (07:23)
[2020-07-03] MEDS ORDERED: Dexamethasone 4 MG/ML VIAL ONE (07:23)
[2020-07-03] MEDS ORDERED: *HR* Midazolam HCl 2 MG/2 ML VIAL ONE (07:23)
[2020-07-03] MEDS ORDERED: *HR* FentaNYL (PF) 100 MCG/2 ML VIAL ONE ×2 (07:23→09:51)
[2020-07-03] MEDS ORDERED: *HR* Succinylcholine 200 MG/10 ML VIAL IVP ONE (07:23)
[2020-07-03] MEDS ORDERED: *HR* Rocuronium Bromide 50 MG/5 ML VIAL ONE (07:23)
[2020-07-03] MEDS ORDERED: Lidocaine HCL 4 ML Topical Solution (Laryng-O-Jet Kit Sterile Pak) TP ONE (07:23)
[2020-07-03] MEDS ORDERED: *HR* Phenylephrine 10 MG/ML VIAL ONE (07:24)
[2020-07-03] MEDS ORDERED: EPHEDrine 50 MG/ML VIAL ONE (07:27)
[2020-07-03] MEDS ORDERED: Heparin 1,000 UNITS/500 mL 500 ML ONE (07:43)
[2020-07-03] MEDS ORDERED: *HR* Labetalol 20 MG/4 ML SYRINGE IVP PRN (08:17)
[2020-07-03] MEDS ORDERED: *HR* OxyCODONE Immed Rel 5 MG TABLET PO PRN (08:17)
[2020-07-03] MEDS ORDERED: *HR* HYDROmorphone (PF) 1 MG/ML SYRINGE IVP PRN (08:17)
[2020-07-03] MEDS ORDERED: Metoprolol XL (24 HR) Succ 25 MG TAB.ER.24H PO SCH (09:00)
[2020-07-03] MEDS: Furosemide 40 MG/4 ML VIAL IVP SCH (12:52)
[2020-07-03] MEDS ORDERED: Haloperidol Lactate 5 MG/ML VIAL IVP ONE (14:07)
[2020-07-03] MEDS ORDERED: Albumin 25% 25gram/100mL 25 GM/100 ML IV.SOLN IVPB ONE (16:32)
[2020-07-04] MEDS: Insulin LISPRO 300 UNITS/3 ML VIAL SQ SCH ×4 (01:03→19:46)
[2020-07-04] MEDS: Furosemide 40 MG/4 ML VIAL IVP SCH (08:59)
[2020-07-04 09:19] LABS: Basophils % 0.2 %; Eosinophils % 0.1 %; Hematocrit 28.2 % (35.3-44.9); Hemoglobin 8.3 g/dL (11.5-15.4); Immature Granulocytes % 0.4 % (0-4); Lymphocytes # 2.1 K/mcL (0.6-4.6); Lymphocytes % 12.8 %; Mean Corpuscular HGB Conc 29.4 g/dL (31.6-35.5); Mean Corpuscular Volume 98.6 fL (83.0-100.0); Mean Platelet Volume 9.5 fL (9.4-12.4); Monocytes # 1.1 K/mcL (0.0-1.3); Monocytes % 7.1 %; Neutrophils # 12.8 K/mcL (1.6-8.9); Platelet Count 245 K/mcL (140-400); Red Blood Count 2.86 M/mcL (3.82-4.97); Segmented Neutrophils % 79.4 %
[2020-07-04 09:28] LABS: BUN/Creatinine Ratio 19 (6-26); Blood Urea Nitrogen 16 mg/dL (8-23); Calcium 9.6 mg/dL (8.6-10.3); Carbon Dioxide 32 mEq/L (23-29); Chloride 98 mEq/L (98-107); Glucose 100 mg/dL (70-105); Osmolality,Calculated 283 (280-300); Potassium 4.2 mEq/L (3.5-5.1); Sodium 136 mEq/L (136-145); eGFR For African Americans > 60 (> 60); eGFR For Non-African Americans > 60 (> 60)
[2020-07-04 09:32] LABS: White Blood Count 16.1 K/mcL (4.3-11.1)
[2020-07-04] MEDS: Budesonide/Formoterol 160/4.5 1 PUFF INH IH SCH ×2 (10:20→19:52)
[2020-07-04 14:17] LABS: Hematocrit 27.4 % (35.3-44.9); Hemoglobin 8.3 g/dL (11.5-15.4)
[2020-07-04 21:06] LABS: Hematocrit 30.8 % (35.3-44.9); Hemoglobin 9.6 g/dL (11.5-15.4)
[2020-07-04] MEDS ORDERED: *HR* LORazepam 2 MG/ML VIAL IVP ONE (21:59)
[2020-07-04] MEDS: Haloperidol Lactate 5 MG/ML VIAL IVP PRN (23:57)
[2020-07-05] MEDS: Insulin LISPRO 300 UNITS/3 ML VIAL SQ SCH ×4 (00:09→18:33)
[2020-07-05 02:19] LABS: Basophils % 0.2 %; Eosinophils % 0.3 %; Hematocrit 26.6 % (35.3-44.9); Hemoglobin 8.2 g/dL (11.5-15.4); Immature Granulocytes % 0.2 % (0-4); Lymphocytes # 1.9 K/mcL (0.6-4.6); Mean Corpuscular HGB Conc 30.8 g/dL (31.6-35.5); Mean Corpuscular Hemoglobin 29.9 pg (28.0-33.3); Mean Corpuscular Volume 97.1 fL (83.0-100.0); Mean Platelet Volume 9.3 fL (9.4-12.4); Monocytes % 6.7 %; Neutrophils # 11.4 K/mcL (1.6-8.9); Platelet Count 227 K/mcL (140-400); Red Blood Count 2.74 M/mcL (3.82-4.97); Red Cell Distribution Width 17.8 % (11.5-14.5); Segmented Neutrophils % 79.6 %; White Blood Count 14.3 K/mcL (4.3-11.1)
[2020-07-05 02:55] LABS: BUN/Creatinine Ratio 24 (6-26); Blood Urea Nitrogen 20 mg/dL (8-23); Calcium 8.8 mg/dL (8.6-10.3); Carbon Dioxide 30 mEq/L (23-29); Chloride 96 mEq/L (98-107); Glucose 105 mg/dL (70-105); Osmolality,Calculated 283 (280-300); Potassium 3.6 mEq/L (3.5-5.1); Sodium 135 mEq/L (136-145); eGFR For African Americans > 60 (> 60); eGFR For Non-African Americans > 60 (> 60)
[2020-07-05] MEDS ORDERED: *HR* LORazepam 2 MG/ML VIAL IVP ONE (04:09)
[2020-07-05] MEDS: Furosemide 40 MG/4 ML VIAL IVP SCH (08:07)
[2020-07-05] MEDS: Haloperidol Lactate 5 MG/ML VIAL IVP PRN ×2 (08:11→22:45)
[2020-07-05] MEDS: Budesonide/Formoterol 160/4.5 1 PUFF INH IH SCH ×2 (10:10→20:37)
[2020-07-05] MEDS: 0.9 % Sodium Chloride 1,000 ML IVC SCH (15:05)
[2020-07-05] MEDS: Gabapentin 100 MG CAPSULE PO SCH ×3 (15:19→19:53)
[2020-07-06] MEDS: Insulin LISPRO 300 UNITS/3 ML VIAL SQ SCH ×4 (00:23→17:02)
[2020-07-06] MEDS: 0.9 % Sodium Chloride 1,000 ML IVC SCH ×2 (04:36→18:41)
[2020-07-06] MEDS: Haloperidol Lactate 5 MG/ML VIAL IVP PRN ×2 (04:51→21:52)
[2020-07-06 05:49] LABS: Basophils % 0.5 %; Eosinophils # 0.4 K/mcL (0.0-0.6); Hematocrit 27.6 % (35.3-44.9); Hemoglobin 8.1 g/dL (11.5-15.4); Immature Granulocytes % 0.3 % (0-4); Lymphocytes # 1.4 K/mcL (0.6-4.6); Lymphocytes % 16.1 %; Mean Corpuscular HGB Conc 29.3 g/dL (31.6-35.5); Mean Corpuscular Hemoglobin 29.3 pg (28.0-33.3); Mean Platelet Volume 9.5 fL (9.4-12.4); Monocytes # 0.6 K/mcL (0.0-1.3); Monocytes % 6.6 %; Neutrophils # 6.3 K/mcL (1.6-8.9); Platelet Count 232 K/mcL (140-400); Red Blood Count 2.76 M/mcL (3.82-4.97); Red Cell Distribution Width 17.4 % (11.5-14.5); Segmented Neutrophils % 72.5 %; White Blood Count 8.7 K/mcL (4.3-11.1)
[2020-07-06 06:12] LABS: BUN/Creatinine Ratio 27 (6-26); Blood Urea Nitrogen 18 mg/dL (8-23); Calcium 8.7 mg/dL (8.6-10.3); Carbon Dioxide 33 mEq/L (23-29); Chloride 99 mEq/L (98-107); Glucose 74 mg/dL (70-105); Osmolality,Calculated 285 (280-300); Potassium 3.6 mEq/L (3.5-5.1); Sodium 137 mEq/L (136-145); eGFR For African Americans > 60 (> 60); eGFR For Non-African Americans > 60 (> 60)
[2020-07-06] MEDS: Budesonide/Formoterol 160/4.5 1 PUFF INH IH SCH ×2 (07:27→19:53)
[2020-07-06] MEDS: Gabapentin 100 MG CAPSULE PO SCH ×3 (09:43→19:35)
[2020-07-06] MEDS: Furosemide 40 MG/4 ML VIAL IVP SCH (09:43)
[2020-07-06] MEDS ORDERED: D5% in 0.9% NACL 1,000 ML IVC SCH (20:15)
[2020-07-07] MEDS: Insulin LISPRO 300 UNITS/3 ML VIAL SQ SCH ×3 (00:08→14:35)
[2020-07-07 03:33] LABS: Basophils # 0.1 K/mcL (0.0-0.2); Basophils % 0.5 %; Eosinophils # 0.4 K/mcL (0.0-0.6); Eosinophils % 3.8 %; Hematocrit 28.3 % (35.3-44.9); Hemoglobin 8.3 g/dL (11.5-15.4); Immature Granulocytes % 0.2 % (0-4); Lymphocytes # 1.6 K/mcL (0.6-4.6); Lymphocytes % 17.7 %; Mean Corpuscular HGB Conc 29.3 g/dL (31.6-35.5); Mean Corpuscular Hemoglobin 28.4 pg (28.0-33.3); Mean Corpuscular Volume 96.9 fL (83.0-100.0); Mean Platelet Volume 9.8 fL (9.4-12.4); Monocytes # 0.6 K/mcL (0.0-1.3); Monocytes % 6.8 %; Neutrophils # 6.6 K/mcL (1.6-8.9); Platelet Count 279 K/mcL (140-400); Red Blood Count 2.92 M/mcL (3.82-4.97); Red Cell Distribution Width 17.2 % (11.5-14.5); White Blood Count 9.3 K/mcL (4.3-11.1)
[2020-07-07 03:54] LABS: BUN/Creatinine Ratio 26 (6-26); Blood Urea Nitrogen 18 mg/dL (8-23); Calcium 8.6 mg/dL (8.6-10.3); Carbon Dioxide 30 mEq/L (23-29); Chloride 98 mEq/L (98-107); Glucose 71 mg/dL (70-105); Osmolality,Calculated 286 (280-300); Potassium 3.3 mEq/L (3.5-5.1); Sodium 138 mEq/L (136-145); eGFR For African Americans > 60 (> 60); eGFR For Non-African Americans > 60 (> 60)
[2020-07-07] MEDS: Budesonide/Formoterol 160/4.5 1 PUFF INH IH SCH ×2 (07:27→19:55)
[2020-07-07] MEDS ORDERED: Potassium Chloride 40 MEQ, Lidocaine 1% 2 ML in 0.9 % Sodium Chloride 500 ML IVPB ONE (07:47)
[2020-07-07] MEDS: Furosemide 40 MG/4 ML VIAL IVP SCH (09:10)
[2020-07-07] MEDS: Gabapentin 100 MG CAPSULE PO SCH ×3 (09:10→21:31)
[2020-07-08 02:00] LABS: Basophils % 0.4 %; Eosinophils # 0.4 K/mcL (0.0-0.6); Eosinophils % 5.4 %; Hematocrit 27.9 % (35.3-44.9); Hemoglobin 8.3 g/dL (11.5-15.4); Immature Granulocytes % 0.3 % (0-4); Lymphocytes # 1.6 K/mcL (0.6-4.6); Lymphocytes % 23.4 %; Mean Corpuscular HGB Conc 29.7 g/dL (31.6-35.5); Mean Corpuscular Hemoglobin 28.4 pg (28.0-33.3); Mean Corpuscular Volume 95.5 fL (83.0-100.0); Mean Platelet Volume 9.5 fL (9.4-12.4); Monocytes # 0.7 K/mcL (0.0-1.3); Monocytes % 9.6 %; Neutrophils # 4.2 K/mcL (1.6-8.9); Platelet Count 262 K/mcL (140-400); Red Blood Count 2.92 M/mcL (3.82-4.97); Red Cell Distribution Width 17.1 % (11.5-14.5); Segmented Neutrophils % 60.9 %; White Blood Count 6.9 K/mcL (4.3-11.1)
[2020-07-08 02:18] LABS: BUN/Creatinine Ratio 17 (6-26); Blood Urea Nitrogen 11 mg/dL (8-23); Calcium 8.7 mg/dL (8.6-10.3); Carbon Dioxide 32 mEq/L (23-29); Chloride 99 mEq/L (98-107); Glucose 112 mg/dL (70-105); Osmolality,Calculated 284 (280-300); Potassium 3.2 mEq/L (3.5-5.1); Sodium 137 mEq/L (136-145); eGFR For African Americans > 60 (> 60); eGFR For Non-African Americans > 60 (> 60)
[2020-07-08] MEDS: Budesonide/Formoterol 160/4.5 1 PUFF INH IH SCH ×2 (07:30→19:49)
[2020-07-08] MEDS: Gabapentin 100 MG CAPSULE PO SCH ×3 (08:37→20:51)
[2020-07-08] MEDS: Furosemide 40 MG/4 ML VIAL IVP SCH (08:37)
[2020-07-09 01:36] LABS: Basophils % 0.4 %; Eosinophils # 0.3 K/mcL (0.0-0.6); Hematocrit 28.7 % (35.3-44.9); Hemoglobin 8.5 g/dL (11.5-15.4); Immature Granulocytes % 0.1 % (0-4); Lymphocytes # 1.6 K/mcL (0.6-4.6); Lymphocytes % 20.1 %; Mean Corpuscular HGB Conc 29.6 g/dL (31.6-35.5); Mean Corpuscular Hemoglobin 28.7 pg (28.0-33.3); Mean Platelet Volume 9.1 fL (9.4-12.4); Monocytes # 0.7 K/mcL (0.0-1.3); Monocytes % 8.6 %; Neutrophils # 5.2 K/mcL (1.6-8.9); Platelet Count 262 K/mcL (140-400); Red Blood Count 2.96 M/mcL (3.82-4.97); Segmented Neutrophils % 66.8 %; White Blood Count 7.8 K/mcL (4.3-11.1)
[2020-07-09 01:57] LABS: BUN/Creatinine Ratio 13 (6-26); Blood Urea Nitrogen 8 mg/dL (8-23); Calcium 8.7 mg/dL (8.6-10.3); Carbon Dioxide 32 mEq/L (23-29); Chloride 100 mEq/L (98-107); Glucose 119 mg/dL (70-105); Osmolality,Calculated 283 (280-300); Potassium 3.6 mEq/L (3.5-5.1); Sodium 137 mEq/L (136-145); eGFR For African Americans > 60 (> 60); eGFR For Non-African Americans > 60 (> 60)
[2020-07-09] MEDS: Budesonide/Formoterol 160/4.5 1 PUFF INH IH SCH (07:23)
[2020-07-09] MEDS: Furosemide 40 MG/4 ML VIAL IVP SCH (08:35)
[2020-07-09] MEDS: Gabapentin 100 MG CAPSULE PO SCH (08:36)
[2020-07-09 11:32] VITALS: BP 111/68
== END 2020-07-09 17:07 | disposition home health service (06) | DRG 329 ==
LOC: CDU 23:05 → EMEROOARM 23:05 → CDU 07-03 05:20 → 2ANU 07-03 18:43
PROVIDERS: ADMIT Internal Medicine; ATTEND Internal Medicine

== ENCOUNTER 2020-10-19 23:39 | Inpatient (IN) ==
[2020-10-19] MEDS ORDERED: Albuterol 2.5 MG/3 ML NEBULIZER IH ONE (23:58)
[2020-10-20 00:47] LABS: ABG Base Excess 9 mEq/L (-2 to 3); ABG HCO3 36 mEq/L (21-27); ABG Oxygen Saturation 95 % (95-98); ABG PCO2 61 mmHg (35-45); ABG PH 7.37 pH Units (7.32-7.45); ABG PO2 78 mmHg (85-104); ABG TCO2 37 mEq/L (20-26); Blood Gas Modality BiLevel
[2020-10-20 00:50] LABS: Basophils % 0.5 %; Eosinophils # 0.1 K/mcL (0.0-0.6); Eosinophils % 1.2 %; Hematocrit 22.7 % (35.3-44.9); Hemoglobin 6.7 g/dL (11.5-15.4); Immature Granulocytes % 0.1 % (0-4); Lymphocytes # 0.9 K/mcL (0.6-4.6); Lymphocytes % 11.7 %; Mean Corpuscular HGB Conc 29.5 g/dL (31.6-35.5); Mean Corpuscular Hemoglobin 27.7 pg (28.0-33.3); Mean Corpuscular Volume 93.8 fL (83.0-100.0); Mean Platelet Volume 9.4 fL (9.4-12.4); Monocytes # 0.8 K/mcL (0.0-1.3); Neutrophils # 5.8 K/mcL (1.6-8.9); Platelet Count 362 K/mcL (140-400); Red Blood Count 2.42 M/mcL (3.82-4.97); Red Cell Distribution Width 15.9 % (11.5-14.5); Segmented Neutrophils % 76.5 %; White Blood Count 7.6 K/mcL (4.3-11.1)
[2020-10-20 00:59] LABS: BUN/Creatinine Ratio 11 (6-26); Blood Urea Nitrogen 10 mg/dL (8-23); Calcium 9.2 mg/dL (8.6-10.3); Carbon Dioxide 35 mEq/L (23-29); Chloride 91 mEq/L (98-107); Glucose 141 mg/dL (70-105); Osmolality,Calculated 275 (280-300); Potassium 3.9 mEq/L (3.5-5.1); Sodium 132 mEq/L (136-145); eGFR For African Americans > 60 (> 60); eGFR For Non-African Americans > 60 (> 60)
[2020-10-20 01:02] LABS: Troponin I 0.04 ng/mL (< 0.04)
[2020-10-20] MEDS ORDERED: Azithromycin 500 MG in 0.9 % Sodium Chloride 250 ML IVPB ONE (01:07)
[2020-10-20] MEDS ORDERED: cefTRIAXone 1,000 MG in Water for inj. (sterile) 10 ML IVP ONE (01:07)
[2020-10-20 01:17] LABS: Bacteria,Urine Few per hpf (None-Few); Bilirubin,Urine Negative (Negative); Blood,Urine Negative (Negative); Clarity,Urine Clear (Clear); Color,Urine Yellow (Yellow); Glucose,Urine (UA) Normal (Normal); Hyaline Casts,Urine Few per lpf (None Seen); Ketones,Urine Negative (Negative); Leukocyte Esterase,Urine Negative (Negative); Mucus,Urine Few per lpf (None-Few); Nitrite,Urine Negative (Negative); PH,Urine 5.5 pH Units (5.0-8.0); Protein,Urine 50 mg/dL (Neg-Trace); RBC,Urine 0-3 per hpf (0-3); Specific Gravity,Urine 1.024 (1.010-1.025); Squamous Epithelial Cell,Urine Few per hpf (None-Few); WBC,Urine 0-3 per hpf (0-3)
[2020-10-20] MEDS: DilTIAZem 50 MG/50 ML IV.SOLN IVC SCH ×4 (01:21→13:53)
[2020-10-20 01:24] LABS: Adenovirus Not Detected (Not Detect); Bordetella Pertussis Not Detected (Not Detect); Chlamydophila pneumoniae Not Detected (Not Detect); Coronavirus 229E Not Detected (Not Detect); Coronavirus HKU1 Not Detected (Not Detect); Coronavirus NL63 Not Detected (Not Detect); Coronavirus OC43 Not Detected (Not Detect); Human Metapneumovirus Not Detected (Not Detect); Human Rhinovirus/Enterovirus Not Detected (Not Detect); Influenza A Subtype 2009 H1 Not Detected (Not Detect); Influenza B Not Detected (Not Detect); Mycoplasma pneumoniae Not Detected (Not Detect); Parainfluenza Virus 1 Not Detected (Not Detect); Parainfluenza Virus 2 Not Detected (Not Detect); Parainfluenza Virus 3 Not Detected (Not Detect); Parainfluenza Virus 4 Not Detected (Not Detect); Respiratory Syncytial Virus Not Detected (Not Detect); SARS-CoV-2 Not Detected (Not Detect)
[2020-10-20] MEDS ORDERED: Furosemide 40 MG/4 ML VIAL IVP ONE ×2 (01:29→14:37)
[2020-10-20] MEDS ORDERED: Isovue-370 500 ML BOTTLE IVP ONE (01:38)
[2020-10-20] MEDS ORDERED: Naloxone 0.4 MG/ML INJ IVP PRN (04:35)
[2020-10-20] MEDS ORDERED: Ondansetron 4 MG/2 ML VIAL IVP PRN (04:35)
[2020-10-20] MEDS ORDERED: D5% in Water 1,000 ML IVC PRN (04:50)
[2020-10-20] MEDS ORDERED: *HR* Dextrose 50 % in Water (Vial) 50 ML VIAL IVP PRN (04:50)
[2020-10-20] MEDS ORDERED: Dextrose Gel 15 GM/37.5 ML TUBE PO PRN ×2 (04:50)
[2020-10-20 05:04] LABS: % Iron Saturation 3 % (15-50); Iron 18 mcg/dL (50-170); Transferrin 436 mg/dL (203-362)
[2020-10-20] MEDS: MethylPREDNISolone 40 MG/ML VIAL IVP SCH ×3 (05:14→17:33)
[2020-10-20] MEDS: Ipratropium/Albuterol Neb 3 ML IH SCH ×5 (05:20→20:11)
[2020-10-20 05:22] LABS: Ferritin 19 ng/mL (10-120)
[2020-10-20 05:29] LABS: Folate 7.9 ng/mL (3.0-16.0)
[2020-10-20] MEDS: Insulin LISPRO 300 UNITS/3 ML VIAL SUBQ SCH ×3 (05:50→17:30)
[2020-10-20] MEDS ORDERED: *HR* Heparin 5,000 UNIT/ML VIAL SQ SCH (06:00)
[2020-10-20 07:00] LABS: Troponin I 0.05 ng/mL (< 0.04)
[2020-10-20 07:06] LABS: Immature Reticulocyte % 23.7 % (11.0-38.0); Retculocyte # 0.13 M/mcL (0.05-0.10); Reticulocyte % 5.5 % (1.6-2.8)
[2020-10-20] MEDS: Furosemide 40 MG/4 ML VIAL IVP SCH ×2 (08:29→23:29)
[2020-10-20] MEDS: Pantoprazole 40 MG VIAL IVP SCH ×2 (09:25→17:33)
[2020-10-20 09:40] LABS: Magnesium 1.9 mg/dL (1.6-2.6)
[2020-10-20 09:53] LABS: Thyroid Stimulating Hormone 0.793 mcIU/mL (0.340-5.600)
[2020-10-20] MEDS: DilTIAZem CD (24hr) 120 MG CAP.ER.24H PO SCH (12:21)
[2020-10-20 15:13] LABS: Basophils % 0.3 %; Hematocrit 25.2 % (35.3-44.9); Hemoglobin 7.6 g/dL (11.5-15.4); Immature Granulocytes % 0.3 % (0-4); Lymphocytes # 0.2 K/mcL (0.6-4.6); Mean Corpuscular HGB Conc 30.2 g/dL (31.6-35.5); Mean Corpuscular Hemoglobin 27.4 pg (28.0-33.3); Mean Platelet Volume 9.2 fL (9.4-12.4); Monocytes # 0.1 K/mcL (0.0-1.3); Monocytes % 1.6 %; Neutrophils # 3.5 K/mcL (1.6-8.9); Platelet Count 318 K/mcL (140-400); Red Blood Count 2.77 M/mcL (3.82-4.97); Red Cell Distribution Width 15.9 % (11.5-14.5); Segmented Neutrophils % 92.8 %; White Blood Count 3.8 K/mcL (4.3-11.1)
[2020-10-20 15:43] LABS: Hypochromasia Present (Not Present); Platelet Estimate Normal (Normal); Polychromasia 1+ (Not Present)
[2020-10-20] MEDS: Azithromycin 500 MG in 0.9 % Sodium Chloride 250 ML IVPB SCH (17:33)
[2020-10-20] MEDS ORDERED: *HR* LORazepam 2 MG/ML VIAL IVP ONE (23:11)
[2020-10-21] MEDS: MethylPREDNISolone 40 MG/ML VIAL IVP SCH ×4 (00:03→17:39)
[2020-10-21] MEDS: Insulin LISPRO 300 UNITS/3 ML VIAL SUBQ SCH ×5 (00:04→21:05)
[2020-10-21] MEDS: Ipratropium/Albuterol Neb 3 ML IH SCH ×6 (00:10→20:51)
[2020-10-21] MEDS: Pantoprazole 40 MG VIAL IVP SCH ×2 (06:28→17:38)
[2020-10-21 07:21] LABS: Hematocrit 23.7 % (35.3-44.9); Hemoglobin 7.1 g/dL (11.5-15.4); Immature Granulocytes % 0.2 % (0-4); Lymphocytes # 0.3 K/mcL (0.6-4.6); Mean Corpuscular Hemoglobin 27.4 pg (28.0-33.3); Mean Corpuscular Volume 91.5 fL (83.0-100.0); Mean Platelet Volume 9.7 fL (9.4-12.4); Monocytes # 0.2 K/mcL (0.0-1.3); Monocytes % 3.4 %; Nucleated Red Blood Cells 0.4 /100 WBC (0); Platelet Count 305 K/mcL (140-400); Red Blood Count 2.59 M/mcL (3.82-4.97); Red Cell Distribution Width 16.2 % (11.5-14.5); Segmented Neutrophils % 90.4 %; White Blood Count 5.5 K/mcL (4.3-11.1)
[2020-10-21 07:39] LABS: Potassium 4.1 mEq/L (3.5-5.1)
[2020-10-21] MEDS: DilTIAZem CD (24hr) 120 MG CAP.ER.24H PO SCH (08:18)
[2020-10-21] MEDS ORDERED: Perflutren Lipid Microsphere 1.3 ML in 0.9 % Sodium Chloride 8.7 ML IVP PRN (09:06)
[2020-10-21] MEDS ORDERED: Haloperidol Lactate 5 MG/ML VIAL IVP PRN (10:49)
[2020-10-21] MEDS: cefTRIAXone 1,000 MG in Water for inj. (sterile) 10 ML IVP SCH (14:03)
[2020-10-21 14:24] LABS: Hematocrit 27.2 % (35.3-44.9); Hemoglobin 8.4 g/dL (11.5-15.4); Immature Granulocytes % 0.3 % (0-4); Lymphocytes # 0.3 K/mcL (0.6-4.6); Lymphocytes % 3.9 %; Mean Corpuscular HGB Conc 30.9 g/dL (31.6-35.5); Mean Corpuscular Hemoglobin 28.4 pg (28.0-33.3); Mean Corpuscular Volume 91.9 fL (83.0-100.0); Mean Platelet Volume 9.8 fL (9.4-12.4); Monocytes # 0.2 K/mcL (0.0-1.3); Monocytes % 2.8 %; Nucleated Red Blood Cells 0.9 /100 WBC (0); Platelet Count 308 K/mcL (140-400); Red Blood Count 2.96 M/mcL (3.82-4.97); Red Cell Distribution Width 16.2 % (11.5-14.5); White Blood Count 6.5 K/mcL (4.3-11.1)
[2020-10-21] MEDS: Azithromycin 500 MG in 0.9 % Sodium Chloride 250 ML IVPB SCH (17:40)
[2020-10-22] MEDS: MethylPREDNISolone 40 MG/ML VIAL IVP SCH ×3 (02:41→12:55)
[2020-10-22] MEDS: Ipratropium/Albuterol Neb 3 ML IH SCH ×7 (04:30→22:40)
[2020-10-22] MEDS: Pantoprazole 40 MG VIAL IVP SCH ×2 (06:47→18:32)
[2020-10-22] MEDS: DilTIAZem CD (24hr) 120 MG CAP.ER.24H PO SCH (08:37)
[2020-10-22] MEDS: cefTRIAXone 1,000 MG in Water for inj. (sterile) 10 ML IVP SCH (08:37)
[2020-10-22] MEDS: Insulin LISPRO 300 UNITS/3 ML VIAL SUBQ SCH ×4 (08:47→20:38)
[2020-10-22 11:59] LABS: Basophils % 0.1 %; Hematocrit 28.1 % (35.3-44.9); Hemoglobin 8.9 g/dL (11.5-15.4); Immature Granulocytes % 0.3 % (0-4); Lymphocytes # 0.3 K/mcL (0.6-4.6); Lymphocytes % 2.7 %; Mean Corpuscular HGB Conc 31.7 g/dL (31.6-35.5); Mean Corpuscular Hemoglobin 28.2 pg (28.0-33.3); Mean Corpuscular Volume 88.9 fL (83.0-100.0); Mean Platelet Volume 9.9 fL (9.4-12.4); Monocytes # 0.6 K/mcL (0.0-1.3); Monocytes % 4.8 %; Nucleated Red Blood Cells 0.9 /100 WBC (0); Platelet Count 338 K/mcL (140-400); Red Blood Count 3.16 M/mcL (3.82-4.97); Red Cell Distribution Width 16.2 % (11.5-14.5); Segmented Neutrophils % 92.1 %
[2020-10-22 12:04] LABS: Neutrophils # 10.8 K/mcL (1.6-8.9); White Blood Count 11.7 K/mcL (4.3-11.1)
[2020-10-22 12:18] LABS: Calcium 8.4 mg/dL (8.6-10.3); Potassium 4.7 mEq/L (3.5-5.1)
[2020-10-22 14:40] LABS: RBC,Pleural Fluid 2000 RBC/mcL
[2020-10-22 14:51] LABS: Glucose,Pleural Fluid 153 mg/dL (No Ref Range); LDH,Pleural Fluid 50 Units/L (No Ref Range); Total Protein,Pleural Fluid < 2.0 g/dL
[2020-10-22 15:04] LABS: Basophils,Pleural Fluid 0 %; Eosinophils,Pleural Fluid 0 %
[2020-10-22 15:05] LABS: Appearance of Pleural Fl Clear (Clear)
[2020-10-22] MEDS: Albumin 25% 25gram/100mL 25 GM/100 ML IV.SOLN IVC SCH ×2 (16:16→20:04)
[2020-10-22] MEDS: Azithromycin 500 MG in 0.9 % Sodium Chloride 250 ML IVPB SCH (18:32)
[2020-10-22 20:47] LABS: Basophils % 0.1 %; Hemoglobin 9.6 g/dL (11.5-15.4); Lymphocytes # 1.4 K/mcL (0.6-4.6); Mean Corpuscular HGB Conc 29.1 g/dL (31.6-35.5); Mean Corpuscular Hemoglobin 27.6 pg (28.0-33.3); Mean Corpuscular Volume 94.8 fL (83.0-100.0); Mean Platelet Volume 9.9 fL (9.4-12.4); Monocytes # 1.3 K/mcL (0.0-1.3); Neutrophils # 12.7 K/mcL (1.6-8.9); Nucleated Red Blood Cells 2.3 /100 WBC (0); Platelet Count 332 K/mcL (140-400); Red Blood Count 3.48 M/mcL (3.82-4.97); Red Cell Distribution Width 16.7 % (11.5-14.5); Segmented Neutrophils % 81.9 %; White Blood Count 15.6 K/mcL (4.3-11.1)
[2020-10-22 21:02] LABS: Albumin 4.2 g/dL (3.5-5.7); Albumin/Globulin Ratio 1.6 (1.1-2.2); Bilirubin,Total 0.7 mg/dL (0.3-1.0); Calcium 8.4 mg/dL (8.6-10.3); Globulin 2.7 g/dL (2.4-3.5); Potassium 5.6 mEq/L (3.5-5.1); Total Protein 6.9 g/dL (6.4-8.9)
[2020-10-22 22:43] LABS: INR 1.5; Prothrombin Time 17.2 Seconds (9.4-12.1)
[2020-10-22] MEDS ORDERED: 0.9 % Sodium Chloride 500 ML IV ONE (23:53)
[2020-10-22] MEDS ORDERED: 0.9 % Sodium Chloride 500 ML ONE (23:56)
[2020-10-23] MEDS: Ipratropium/Albuterol Neb 3 ML IH SCH ×6 (03:43→23:07)
[2020-10-23] MEDS: Pantoprazole 40 MG VIAL IVP SCH ×2 (05:14→17:26)
[2020-10-23] MEDS: MethylPREDNISolone 40 MG/ML VIAL IVP SCH ×2 (05:15→17:26)
[2020-10-23 07:09] LABS: Basophils % 0.1 %; Hematocrit 27.9 % (35.3-44.9); Hemoglobin 8.4 g/dL (11.5-15.4); Immature Granulocytes % 0.3 % (0-4); Lymphocytes # 0.6 K/mcL (0.6-4.6); Lymphocytes % 3.3 %; Mean Corpuscular HGB Conc 30.1 g/dL (31.6-35.5); Mean Corpuscular Hemoglobin 27.3 pg (28.0-33.3); Mean Corpuscular Volume 90.6 fL (83.0-100.0); Monocytes # 1.3 K/mcL (0.0-1.3); Monocytes % 7.4 %; Nucleated Red Blood Cells 1.2 /100 WBC (0); Platelet Count 268 K/mcL (140-400); Red Blood Count 3.08 M/mcL (3.82-4.97); Red Cell Distribution Width 16.8 % (11.5-14.5); Segmented Neutrophils % 88.9 %
[2020-10-23 07:26] LABS: Calcium 7.9 mg/dL (8.6-10.3); Magnesium 1.9 mg/dL (1.6-2.6); Phosphorous 6.5 mg/dL (2.7-4.5); Potassium 4.7 mEq/L (3.5-5.1)
[2020-10-23 07:27] LABS: Uric Acid 9.3 mg/dL (2.3-7.6)
[2020-10-23] MEDS: cefTRIAXone 1,000 MG in Water for inj. (sterile) 10 ML IVP SCH (08:25)
[2020-10-23] MEDS: Insulin LISPRO 300 UNITS/3 ML VIAL SUBQ SCH ×4 (08:30→19:49)
[2020-10-23] MEDS: Haloperidol Lactate 5 MG/ML VIAL IVP PRN ×2 (11:36→21:05)
[2020-10-23] MEDS ORDERED: Albumin 25% 25gram/100mL 25 GM/100 ML IV.SOLN IVPB ONE (12:25)
[2020-10-23 12:43] LABS: Creatinine,Urine 132 mg/dL
[2020-10-23] MEDS: Doxycycline 100 MG in 0.9 % Sodium Chloride Mini Bag 100 ML IVPB SCH (17:25)
[2020-10-23] MEDS: Cefepime HCl 1,000 MG in Water for inj. (sterile) 10 ML IVP SCH (17:26)
[2020-10-23] MEDS: Budesonide/Formoterol 160/4.5 1 PUFF INH IH SCH (23:05)
[2020-10-24 02:56] LABS: Hematocrit 27.3 % (35.3-44.9); Hemoglobin 8.5 g/dL (11.5-15.4); Immature Granulocytes % 0.3 % (0-4); Lymphocytes # 0.2 K/mcL (0.6-4.6); Lymphocytes % 1.8 %; Mean Corpuscular HGB Conc 31.1 g/dL (31.6-35.5); Mean Corpuscular Hemoglobin 27.4 pg (28.0-33.3); Mean Corpuscular Volume 88.1 fL (83.0-100.0); Mean Platelet Volume 10.2 fL (9.4-12.4); Monocytes # 0.5 K/mcL (0.0-1.3); Monocytes % 4.3 %; Neutrophils # 10.7 K/mcL (1.6-8.9); Nucleated Red Blood Cells 0.5 /100 WBC (0); Platelet Count 266 K/mcL (140-400); Red Cell Distribution Width 16.4 % (11.5-14.5); Segmented Neutrophils % 93.6 %; White Blood Count 11.4 K/mcL (4.3-11.1)
[2020-10-24 02:58] LABS: Magnesium 2.1 mg/dL (1.6-2.6); Phosphorous 5.9 mg/dL (2.7-4.5); Potassium 5.3 mEq/L (3.5-5.1)
[2020-10-24] MEDS: Ipratropium/Albuterol Neb 3 ML IH SCH ×5 (03:59→19:51)
[2020-10-24] MEDS: Cefepime HCl 1,000 MG in Water for inj. (sterile) 10 ML IVP SCH ×2 (05:29→18:05)
[2020-10-24] MEDS: Doxycycline 100 MG in 0.9 % Sodium Chloride Mini Bag 100 ML IVPB SCH ×2 (05:29→19:26)
[2020-10-24] MEDS: Pantoprazole 40 MG VIAL IVP SCH ×2 (05:29→18:05)
[2020-10-24] MEDS: MethylPREDNISolone 40 MG/ML VIAL IVP SCH (05:30)
[2020-10-24] MEDS: Haloperidol Lactate 5 MG/ML VIAL IVP PRN ×2 (08:51→16:31)
[2020-10-24] MEDS: Insulin LISPRO 300 UNITS/3 ML VIAL SUBQ SCH ×4 (08:56→19:33)
[2020-10-24] MEDS: Budesonide/Formoterol 160/4.5 1 PUFF INH IH SCH ×2 (11:13→19:51)
[2020-10-24] MEDS ORDERED: Albumin 25% 25gram/100mL 25 GM/100 ML IV.SOLN IVPB ONE (13:16)
[2020-10-24 16:52] LABS: Calcium 8.9 mg/dL (8.6-10.3); Potassium 4.8 mEq/L (3.5-5.1)
[2020-10-24] MEDS: Furosemide 20 MG/2 ML VIAL IVP SCH (19:29)
[2020-10-24] MEDS: *HR* LORazepam 2 MG/ML VIAL IVP PRN (19:58)
[2020-10-24] MEDS ORDERED: Haloperidol Lactate 5 MG/ML VIAL IM PRN (22:40)
[2020-10-25] MEDS: Ipratropium/Albuterol Neb 3 ML IH SCH ×8 (00:05→23:34)
[2020-10-25] MEDS: Haloperidol Lactate 5 MG/ML VIAL IVP PRN ×3 (00:19→23:19)
[2020-10-25] MEDS: Pantoprazole 40 MG VIAL IVP SCH ×2 (05:00→18:11)
[2020-10-25] MEDS: Cefepime HCl 1,000 MG in Water for inj. (sterile) 10 ML IVP SCH (05:00)
[2020-10-25] MEDS ORDERED: Amiodarone Premix 150 MG/100 ML BAG IVPB ONE (05:42)
[2020-10-25] MEDS ORDERED: Amiodarone Premix 360 MG/200 ML BAG IVC ONE (05:42)
[2020-10-25] MEDS ORDERED: Cefepime HCl 2,000 MG in Water for inj. (sterile) 20 ML IVP SCH (06:00)
[2020-10-25] MEDS ORDERED: 0.9 % Sodium Chloride 500 ML IVC ONE (06:10)
[2020-10-25] MEDS ORDERED: Ringers Solution, Lactated 0 ML ONE (06:11)
[2020-10-25] MEDS ORDERED: 0.9 % Sodium Chloride 500 ML ONE (06:17)
[2020-10-25] MEDS ORDERED: Norepinephrine 4 MG/254 ML IV.SOLN IVC SCH (06:30)
[2020-10-25 07:14] LABS: VBG HCO3 32 mEq/L (21-27); VBG PCO2 57 mmHg (41-51); VBG PH 7.35 pH Units (7.32-7.42); VBG PO2 218 mmHg (25-50)
[2020-10-25] MEDS: Insulin LISPRO 300 UNITS/3 ML VIAL SUBQ SCH ×4 (08:37→19:32)
[2020-10-25] MEDS: Furosemide 20 MG/2 ML VIAL IVP SCH (09:30)
[2020-10-25] MEDS: Albumin 25% 25gram/100mL 25 GM/100 ML IV.SOLN IVC SCH ×2 (09:45→11:24)
[2020-10-25] MEDS: Budesonide/Formoterol 160/4.5 1 PUFF INH IH SCH ×2 (11:14→19:46)
[2020-10-25 11:39] LABS: Calcium 9.1 mg/dL (8.6-10.3); Potassium 4.3 mEq/L (3.5-5.1)
[2020-10-25] MEDS ORDERED: Amiodarone Premix 360 MG/200 ML BAG IVC SCH (11:43)
[2020-10-25] MEDS ORDERED: Albumin 25% 25gram/100mL 25 GM/100 ML IV.SOLN IVPB ONE (12:37)
[2020-10-25] MEDS ORDERED: Furosemide 20 MG/2 ML VIAL IVP ONE (14:38)
[2020-10-25] MEDS: Metoprolol XL (24 HR) Succ 25 MG TAB.ER.24H PO SCH (18:09)
[2020-10-25] MEDS: *HR* LORazepam 2 MG/ML VIAL IVP PRN (20:52)
[2020-10-26] MEDS: *HR* LORazepam 2 MG/ML VIAL IVP PRN (01:52)
[2020-10-26 03:11] LABS: Hematocrit 26.6 % (35.3-44.9); Mean Corpuscular HGB Conc 30.1 g/dL (31.6-35.5); Mean Corpuscular Hemoglobin 27.6 pg (28.0-33.3); Mean Corpuscular Volume 91.7 fL (83.0-100.0); Mean Platelet Volume 10.6 fL (9.4-12.4); Platelet Count 206 K/mcL (140-400); Red Cell Distribution Width 16.3 % (11.5-14.5); White Blood Count 11.2 K/mcL (4.3-11.1)
[2020-10-26 03:26] LABS: Albumin 4.3 g/dL (3.5-5.7); Albumin/Globulin Ratio 2.2 (1.1-2.2); Bilirubin,Direct 0.3 mg/dL (0.0-0.2); Bilirubin,Indirect 0.4 mg/dL (0.0-1.0); Bilirubin,Total 0.7 mg/dL (0.3-1.0); Calcium 9.2 mg/dL (8.6-10.3); Magnesium 2.4 mg/dL (1.6-2.6); Potassium 4.7 mEq/L (3.5-5.1); Total Protein 6.3 g/dL (6.4-8.9)
[2020-10-26] MEDS: Haloperidol Lactate 5 MG/ML VIAL IVP PRN (03:26)
[2020-10-26] MEDS: Ipratropium/Albuterol Neb 3 ML IH SCH ×6 (03:37→23:09)
[2020-10-26] MEDS ORDERED: Amiodarone Premix 360 MG/200 ML BAG IVC SCH (06:00)
[2020-10-26] MEDS: Pantoprazole 40 MG VIAL IVP SCH ×2 (06:05→17:04)
[2020-10-26] MEDS: Budesonide/Formoterol 160/4.5 1 PUFF INH IH SCH ×2 (07:28→19:41)
[2020-10-26] MEDS ORDERED: cefTRIAXone 1,000 MG in Water for inj. (sterile) 10 ML IVP SCH (09:00)
[2020-10-26] MEDS: Insulin LISPRO 300 UNITS/3 ML VIAL SUBQ SCH ×4 (09:07→22:36)
[2020-10-26] MEDS: Metoprolol XL (24 HR) Succ 25 MG TAB.ER.24H PO SCH (09:44)
[2020-10-26] MEDS ORDERED: Albumin 25% 25gram/100mL 25 GM/100 ML IV.SOLN IVPB ONE (10:50)
[2020-10-26] MEDS: *HR* Digoxin 0.5 MG/2 ML AMPUL IVP SCH ×2 (11:22→17:03)
[2020-10-26] MEDS: Morphine Sulfate 2 MG/ML SYRINGE IVP PRN ×2 (11:49→15:20)
[2020-10-27] MEDS ORDERED: *HR* Digoxin 0.5 MG/2 ML AMPUL IVP SCH ×2 (00:45→09:00)
[2020-10-27] MEDS: Ipratropium/Albuterol Neb 3 ML IH SCH ×6 (03:12→23:15)
[2020-10-27 06:04] LABS: Hematocrit 29.4 % (35.3-44.9); Hemoglobin 8.7 g/dL (11.5-15.4); Mean Corpuscular HGB Conc 29.6 g/dL (31.6-35.5); Mean Corpuscular Hemoglobin 27.6 pg (28.0-33.3); Mean Corpuscular Volume 93.3 fL (83.0-100.0); Mean Platelet Volume 10.6 fL (9.4-12.4); Platelet Count 190 K/mcL (140-400); Red Blood Count 3.15 M/mcL (3.82-4.97); Red Cell Distribution Width 16.5 % (11.5-14.5); White Blood Count 11.7 K/mcL (4.3-11.1)
[2020-10-27] MEDS: Pantoprazole 40 MG VIAL IVP SCH ×2 (06:17→17:42)
[2020-10-27 06:21] LABS: Calcium 9.8 mg/dL (8.6-10.3); Potassium 5.7 mEq/L (3.5-5.1)
[2020-10-27] MEDS: Insulin LISPRO 300 UNITS/3 ML VIAL SUBQ SCH ×4 (07:47→23:08)
[2020-10-27] MEDS: Furosemide 40 MG/4 ML VIAL IVP SCH (08:08)
[2020-10-27] MEDS: Metoprolol XL (24 HR) Succ 25 MG TAB.ER.24H PO SCH (08:23)
[2020-10-27] MEDS: Budesonide/Formoterol 160/4.5 1 PUFF INH IH SCH ×2 (08:32→19:46)
[2020-10-27] MEDS: Haloperidol Lactate 5 MG/ML VIAL IVP PRN ×2 (09:03→20:15)
[2020-10-27] MEDS: *HR* Digoxin 0.5 MG/2 ML AMPUL IVP SCH (11:43)
[2020-10-27] MEDS: Morphine Sulfate 2 MG/ML SYRINGE IVP PRN ×2 (12:15→20:16)
[2020-10-27 14:04] LABS: Calcium 9.7 mg/dL (8.6-10.3); Potassium 5.5 mEq/L (3.5-5.1)
[2020-10-27] MEDS ORDERED: Furosemide 20 MG/2 ML VIAL IVP ONE (14:30)
[2020-10-27] MEDS: *HR* LORazepam 2 MG/ML VIAL IVP PRN (23:09)
[2020-10-28] MEDS: Ipratropium/Albuterol Neb 3 ML IH SCH ×6 (03:28→23:30)
[2020-10-28] MEDS: Morphine Sulfate 2 MG/ML SYRINGE IVP PRN (05:32)
[2020-10-28] MEDS: Haloperidol Lactate 5 MG/ML VIAL IVP PRN (05:33)
[2020-10-28] MEDS: Pantoprazole 40 MG VIAL IVP SCH ×2 (05:45→18:54)
[2020-10-28 06:24] LABS: Calcium 9.4 mg/dL (8.6-10.3); Digoxin 2.2 ng/mL (0.8-2.0)
[2020-10-28] MEDS: Budesonide/Formoterol 160/4.5 1 PUFF INH IH SCH ×2 (08:14→20:24)
[2020-10-28] MEDS: Insulin LISPRO 300 UNITS/3 ML VIAL SUBQ SCH ×3 (08:40→18:47)
[2020-10-28] MEDS: Furosemide 40 MG/4 ML VIAL IVP SCH (08:43)
[2020-10-28] MEDS: Metoprolol XL (24 HR) Succ 25 MG TAB.ER.24H PO SCH (08:44)
[2020-10-28] MEDS ORDERED: *HR* Metoprolol 5 MG/5 ML VIAL IVP ONE (16:17)
[2020-10-28] MEDS: *HR* LORazepam 2 MG/ML VIAL IVP PRN ×2 (16:20→23:34)
[2020-10-29] MEDS ORDERED: *HR* Metoprolol 5 MG/5 ML VIAL IVP ONE ×2 (01:18→01:20)
[2020-10-29] MEDS: Insulin LISPRO 300 UNITS/3 ML VIAL SUBQ SCH ×4 (04:18→17:32)
[2020-10-29] MEDS: Ipratropium/Albuterol Neb 3 ML IH SCH ×6 (04:22→23:15)
[2020-10-29] MEDS: Pantoprazole 40 MG VIAL IVP SCH (04:39)
[2020-10-29 05:32] LABS: Hematocrit 29.2 % (35.3-44.9); Hemoglobin 8.7 g/dL (11.5-15.4); Mean Corpuscular HGB Conc 29.8 g/dL (31.6-35.5); Mean Corpuscular Hemoglobin 27.9 pg (28.0-33.3); Mean Corpuscular Volume 93.6 fL (83.0-100.0); Platelet Count 162 K/mcL (140-400); Red Blood Count 3.12 M/mcL (3.82-4.97); Red Cell Distribution Width 16.7 % (11.5-14.5)
[2020-10-29 05:51] LABS: Albumin 4.5 g/dL (3.5-5.7); Bilirubin,Direct 0.6 mg/dL (0.0-0.2); Bilirubin,Indirect 0.7 mg/dL (0.0-1.0); Bilirubin,Total 1.3 mg/dL (0.3-1.0); Calcium 9.9 mg/dL (8.6-10.3); Globulin 2.2 g/dL (2.4-3.5); Potassium 5.1 mEq/L (3.5-5.1); Total Protein 6.7 g/dL (6.4-8.9)
[2020-10-29] MEDS: Metoprolol XL (24 HR) Succ 25 MG TAB.ER.24H PO SCH (09:04)
[2020-10-29] MEDS: Budesonide/Formoterol 160/4.5 1 PUFF INH IH SCH ×2 (11:30→19:38)
[2020-10-29 11:54] LABS: Adenovirus Not Detected (Not Detect); Bordetella Pertussis Not Detected (Not Detect); Chlamydophila pneumoniae Not Detected (Not Detect); Coronavirus 229E Not Detected (Not Detect); Coronavirus HKU1 Not Detected (Not Detect); Coronavirus NL63 Not Detected (Not Detect); Coronavirus OC43 Not Detected (Not Detect); Human Metapneumovirus Not Detected (Not Detect); Human Rhinovirus/Enterovirus Not Detected (Not Detect); Influenza A Subtype 2009 H1 Not Detected (Not Detect); Influenza B Not Detected (Not Detect); Mycoplasma pneumoniae Not Detected (Not Detect); Parainfluenza Virus 1 Not Detected (Not Detect); Parainfluenza Virus 2 Not Detected (Not Detect); Parainfluenza Virus 3 Not Detected (Not Detect); Parainfluenza Virus 4 Not Detected (Not Detect); Respiratory Syncytial Virus Not Detected (Not Detect); SARS-CoV-2 Not Detected (Not Detect)
[2020-10-29] MEDS: *HR* Metoprolol 5 MG/5 ML VIAL IVP SCH ×3 (12:36→23:04)
[2020-10-30 02:49] LABS: Calcium 9.9 mg/dL (8.6-10.3); Potassium 4.8 mEq/L (3.5-5.1)
[2020-10-30] MEDS: Ipratropium/Albuterol Neb 3 ML IH SCH ×5 (03:34→20:06)
[2020-10-30] MEDS: Insulin LISPRO 300 UNITS/3 ML VIAL SUBQ SCH ×4 (04:00→17:49)
[2020-10-30] MEDS: *HR* Metoprolol 5 MG/5 ML VIAL IVP SCH ×4 (04:52→23:06)
[2020-10-30] MEDS: Metoprolol XL (24 HR) Succ 25 MG TAB.ER.24H PO SCH (07:17)
[2020-10-30] MEDS: Budesonide/Formoterol 160/4.5 1 PUFF INH IH SCH ×2 (07:31→20:07)
[2020-10-30] MEDS ORDERED: D5% in Water 1,000 ML IVC SCH (08:00)
[2020-10-30] MEDS ORDERED: *HR* Digoxin 0.5 MG/2 ML AMPUL IVP SCH (09:00)
[2020-10-31] MEDS: Ipratropium/Albuterol Neb 3 ML IH SCH ×7 (00:16→23:10)
[2020-10-31 03:03] LABS: Calcium 9.3 mg/dL (8.6-10.3); Potassium 5.6 mEq/L (3.5-5.1)
[2020-10-31] MEDS ORDERED: *HR* Dextrose 50 % in Water (Vial) 50 ML VIAL IVP ONE (05:09)
[2020-10-31] MEDS ORDERED: Calcium Gluconate 1,000 MG/10 ML VIAL IVP ONE (05:15)
[2020-10-31] MEDS ORDERED: Calcium Gluconate 1gm/50mL 1 GM/50 ML BAG IVPB ONE (05:30)
[2020-10-31] MEDS ORDERED: Insulin Human Regular 10 UNIT in 0.9 % Sodium Chloride 10 ML IV ONE (05:30)
[2020-10-31] MEDS: *HR* Metoprolol 5 MG/5 ML VIAL IVP SCH ×3 (05:32→16:46)
[2020-10-31] MEDS: Insulin LISPRO 300 UNITS/3 ML VIAL SUBQ SCH ×4 (06:20→16:11)
[2020-10-31] MEDS: Budesonide/Formoterol 160/4.5 1 PUFF INH IH SCH ×3 (07:19→19:56)
[2020-10-31] MEDS: Metoprolol XL (24 HR) Succ 25 MG TAB.ER.24H PO SCH (08:07)
[2020-10-31] MEDS: D5% in Water 1,000 ML IVC SCH ×2 (08:52→22:12)
[2020-10-31] MEDS: Aspirin 81 MG TAB.CHEW PO SCH (10:25)
[2020-10-31] MEDS: MethylPREDNISolone 40 MG/ML VIAL IVP SCH ×2 (10:32→16:46)
[2020-10-31] MEDS: *HR* Heparin 5,000 UNIT/ML VIAL SQ SCH ×2 (12:54→22:14)
[2020-10-31 17:24] LABS: Calcium 9.2 mg/dL (8.6-10.3); Potassium 5.6 mEq/L (3.5-5.1)
[2020-11-01] MEDS: Insulin LISPRO 300 UNITS/3 ML VIAL SUBQ SCH ×4 (00:56→18:11)
[2020-11-01] MEDS: MethylPREDNISolone 40 MG/ML VIAL IVP SCH ×3 (01:04→18:43)
[2020-11-01] MEDS: *HR* Metoprolol 5 MG/5 ML VIAL IVP SCH ×4 (01:05→18:44)
[2020-11-01] MEDS: Ipratropium/Albuterol Neb 3 ML IH SCH ×5 (03:55→19:56)
[2020-11-01] MEDS: *HR* Heparin 5,000 UNIT/ML VIAL SQ SCH ×3 (06:21→20:41)
[2020-11-01] MEDS: Budesonide/Formoterol 160/4.5 1 PUFF INH IH SCH ×2 (07:19→19:56)
[2020-11-01] MEDS: Aspirin 81 MG TAB.CHEW PO SCH (07:42)
[2020-11-01] MEDS: Metoprolol XL (24 HR) Succ 25 MG TAB.ER.24H PO SCH (07:42)
[2020-11-01] MEDS: D5% in Water 1,000 ML IVC SCH (11:56)
[2020-11-02] MEDS: Ipratropium/Albuterol Neb 3 ML IH SCH ×5 (00:03→16:01)
[2020-11-02] MEDS: Insulin LISPRO 300 UNITS/3 ML VIAL SUBQ SCH ×4 (00:08→17:04)
[2020-11-02] MEDS: *HR* Metoprolol 5 MG/5 ML VIAL IVP SCH ×4 (00:08→17:04)
[2020-11-02] MEDS: MethylPREDNISolone 40 MG/ML VIAL IVP SCH ×2 (01:24→13:05)
[2020-11-02] MEDS: D5% in Water 1,000 ML IVC SCH ×2 (03:27→16:34)
[2020-11-02] MEDS: *HR* Heparin 5,000 UNIT/ML VIAL SQ SCH ×2 (05:47→16:02)
[2020-11-02] MEDS: Budesonide/Formoterol 160/4.5 1 PUFF INH IH SCH (07:35)
[2020-11-02] MEDS: Aspirin 81 MG TAB.CHEW PO SCH (09:17)
[2020-11-02] MEDS: Metoprolol XL (24 HR) Succ 25 MG TAB.ER.24H PO SCH (09:17)
[2020-11-02 13:01] VITALS: BP 88/65
[2020-11-02] MEDS ORDERED: Morphine Sulfate 2 MG/ML SYRINGE IVP PRN (17:42)
[2020-11-02] MEDS ORDERED: *HR* LORazepam 2 MG/ML VIAL IVP PRN (17:44)
== END 2020-11-02 22:15 | disposition expired ==
LOC: EMEROOARM 23:39 → 2NENU 23:39 → SUATTDRO 10-20 17:29 → 2NENU 11-01 08:58
PROVIDERS: ADMIT Student in an Organized Health Care Education/Training Program; ATTEND Internal Medicine